=== PATIENT | female | born 1955 | race Caucasian/White ===

== ENCOUNTER 2018-11-19 09:35 | Day surgery (SDC) | payer MEDICARE, OTHER ==
--- NOTE | 2018-11-19 08:28 | HP ---
DATE OF SURGERY: 11/19/2018 HISTORY OF PRESENT ILLNESS: The patient is a 63 year-old with no prior colonoscopy, positive Cologuard reportedly. No visible bloody stools. No pain. No change in bowel movements. Family history negative for colon cancer. She has not had a prior colonoscopy. She is in need of screening colonoscopy. PAST MEDICAL HISTORY: Anxiety. PAST SURGICAL HISTORY: Hysterectomy. MEDICATIONS: Celexa. ALLERGIES: NKDA. FAMILY HISTORY: Heart disease. Negative for colon cancer. SOCIAL HISTORY: One pack per day smoker, denies alcohol abuse. REVIEW OF SYSTEMS: Twelve systems reviewed. No chest pain or palpitations other systems negative or noncontributory as above and per preadmission questionnaire. PHYSICAL EXAMINATION: GENERAL: No acute distress. HEENT: Sclerae nonicteric. NECK: No JVD. CHEST: Equal excursion, nonlabored breathing. CVS: Regular rate and rhythm. ABDOMEN: Soft. No peritoneal signs. EXTREMITIES: No significant edema. NEURO: Alert, oriented, moving extremities symmetrically. No gross motor deficits noted. RECTAL: Deferred timed to endoscopy exam. IMPRESSION: No prior colonoscopy. There is a question whether she had a positive Cologuard or not. Either way she has not had a prior colonoscopy. She is in need of screening colonoscopy for further evaluation. Shown the risk sheet, explained the procedure in detail but not limited to bleeding or infection, risk of bowel injury or perforation possibly requiring open procedure, risk of missed or nondiagnosis or incomplete exam possibly requiring barium enema, other studies or procedures, general risk of anesthesia or sedation, risk of bowel prep, postoperative risk of nausea or cramping, risk of sedation but not limited to, possibility of inability to diagnose the etiology. She understands all the above but not limited to, will proceed with outpatient colonoscopy under MAC anesthesia.
[~2018-11-19 09:35] MED LIST: Lactated Ringers 1,000 ML IV ONE; Lactated Ringers 1,000 ML IV SCH
[2018-11-19] MEDS ORDERED: Ketamine HCl 50 MG/ML IV ONE (09:36)
[2018-11-19] MEDS ORDERED: DIPRIVAN 200 MG/20 ML IV ONE (09:36)
[2018-11-19] MEDS ORDERED: Lactated Ringers 1,000 ML IV ONE (12:11)
[2018-11-19 13:30] VITALS: BP 158/85; PULSE 80; O2SAT 95
--- NOTE | 2018-11-19 14:46 | OP ---
SURGERY DATE/TIME: 11/19/2018 1208 PREOPERATIVE DIAGNOSIS: Need for screening colonoscopy. No prior colonoscopy. Question whether she has heme-positive Cologuard or not. POSTOPERATIVE DIAGNOSES: 1) Small polyp ascending colon. 2) Small raised lesions versus early polyp or hyperplastic lesion sigmoid colon, rectosigmoid colon. 3) Mild diverticulosis. 4) Small internal and external hemorrhoids. 5) Fair bowel prep. 6) Small superficial ulceration cecum. PROCEDURES: 1) Colonoscopy to terminal ileum. 2) Retrograde ileoscopy. 3) Hot snare ascending colon polyp. 4) Hot biopsy small raised lesion sigmoid colon. 5) Hot biopsy small raised lesion rectum. 6) Cold biopsy margin of small superficial ulceration cecum. SURGEON: Dr. Davon Zambrano. ANESTHESIA: MAC. ESTIMATED BLOOD LOSS: Minimal. INDICATIONS: As noted above. Risks and benefits explained in detail but not limited to and consent obtained. DESCRIPTION OF PROCEDURE AND FINDINGS: The patient is taken to the operating room. MAC anesthesia introduced. After official time out and no disagreement with planned procedure, digital rectal exam did not reveal any rectal masses. She did have some small internal and external hemorrhoids. Video colonoscope inserted and passed up through the tortuous sigmoid, descending, transverse and ascending colon. A small polyp in the proximal ascending colon was removed with hot snare polypectomy with brief bursts of cautery. This is a pretty smooth polyp that is about 3 or 4 mm in size. The scope was then passed up through the terminal ileum. Retrograde ileoscopy performed otherwise grossly unremarkable. No signs of any obvious Crohn's disease or inflammatory bowel disease. The scope was carefully withdrawn. There was a small area of tiny 2 mm ulceration of the cecum. A margin of this was biopsied for completeness. This looked more inflammatory than anything. Cold biopsy is taken. There were no obvious masses. The margin had inflammation. The small ulcer in the cecum was biopsied. The scope was slowly and carefully withdrawn. Prep overall was fair. Some liquidy stool was suction irrigated as clear as possible. Scope pulled back. She did have some diverticulosis in the left colon. She did have small raised lesion versus early polyp or hyperplastic lesion in the sigmoid colon as well as another small one down in the rectum removed with hot biopsy forceps. Good hemostasis noted. The scope withdrawn. Patient tolerated the procedure well. There were no immediate complications. Findings discussed with the family out in the waiting area.
== END 2018-11-19 13:30 | disposition home or self-care (01) ==
LOC: SDC 09:35 → EDSTATUS 15:41
PROVIDERS: ATTEND Surgery
DX: Z12.11 Encounter for screening for malignant neoplasm of colon (principal); K63.5 Polyp of colon; K57.30 Diverticulosis of large intestine without perforation or abscess without bleeding; K64.4 Residual hemorrhoidal skin tags; K64.8 Other hemorrhoids; K63.3 Ulcer of intestine
CPT/HCPCS: 88305; J2704

== ENCOUNTER 2020-05-15 14:50 | Emergency (ER) | payer MEDICARE, OTHER ==
--- NOTE | 2020-05-15 15:39 | XRAY ---
Indication: Left head/facial injury following syncopal fall. Multiple contiguous axial images obtained through the head without contrast. Comparison: None Age-appropriate global atrophy and minimal periventricular degenerative micro-ischemia bilaterally. No acute intracranial hemorrhage, abnormal extra-axial fluid collection, or mass effect. Fourth ventricle is midline without hydrocephalus. Sphenoid sinus demonstrates tiny fluid leveling. Partial opacification right mastoid air cells presumed inflammatory. Remaining visualized paranasal sinuses and left mastoid air cells are clear. Impression: 1. Nonacute senile brain. 2. Incidental sphenoid sinus disease and partial opacification of right mastoid air cells presumed inflammatory.
--- NOTE | 2020-05-15 15:41 | XRAY ---
Indication: Left head/facial injury following syncopal fall. Multiple contiguous axial images obtained through the facial bones. Sagittal and coronal reformatted images obtained. Comparison: None Patient is edentulous. Mild left facial soft tissue swelling. No acute fracture, suspicious bony lesions, or radiopaque foreign body. Orbits including roof, jeff, and floors are intact. Minimal mucosal thickening of both maxillary sinuses and tiny sphenoid sinus fluid level layering. Remaining paranasal sinuses and nasal passages are clear. Very minimal nasal septal deviation to the left. Remaining visualized noncontrasted soft tissues unremarkable. CT head and CT cervical spine reported separately. Impression: 1. Left facial soft tissue swelling. Negative for acute fracture. 2. Incidental paranasal sinus disease.
[2020-05-15 15:45] LABS: Absolute Neutrophil Ct (ANC) 8.44 (1.4-6.9); BASOPHIL % 0.4 % (0.0-0.4); Basophil (Absolute #) 0.05 (0-0.4); Eosinophil % 2.8 % (0.00-5.0); Eosinophil (Absolute #) 0.34 (0-0.5); Hematocrit 46.6 % (35-47); Hemoglobin 15.2 gm/dl (12.0-16.0); Lymphocyte (Absolute #) 2.27 (1.0-4.6); Lymphocytes % 18.6 % (24.0-44.0); Mean Cell Volume 94.5 fl (78-100); Mean Corpuscular Hemoglobin 30.8 pg (26-32); Mean Corpuscular Hgb Concent. 32.6 g/dl (32-36); Mean Platelet Volume 10.3 fl (7.5-11.0); Monocyte (Absolute #) 1.09 (0.0-1.3); Monocytes % 8.9 % (0.0-12.0); Neutrophil % 69.3 % (36.0-66.0); Platelet Count 289 K/mm3 (150-450); Red Blood Count 4.93 M/mm3 (4.1-5.4); White Blood Count 12.2 K/mm3 (4.0-10.5)
--- NOTE | 2020-05-15 15:45 | XRAY ---
Indication: Syncopal fall. Weakness. Comparison: June 06, 2019. PA/lateral chest again demonstrates normal heart and lungs with incidental tiny calcified granulomas. Bony thorax intact with minimal degenerative changes. No new/acute findings.
--- NOTE | 2020-05-15 15:45 | XRAY ---
Indication: Left neck pain following syncopal fall. Multiple contiguous axial images obtained through the cervical spine. Sagittal and coronal reformatted images obtained. Comparison: None Axial images negative for acute fracture, suspicious bony lesions, or spinal canal stenosis. Minimal C3-C6 degenerative endplate spurring. Mild left C3-C4 degenerative facet hypertrophy. Sagittal and coronal reformatted images demonstrate normal alignment with minimal C4-C6 disc space narrowing. No acute compression fracture, subluxation, or jumped facet. Visualized noncontrasted soft tissues demonstrates minimal bilateral carotid calcifications. Lung apices are clear. CT head and CT facial bones reported separately. Impression: 1. Negative for acute fracture/subluxation. 2. Incidental C3-C6 degenerative changes.
[2020-05-15 15:51] LABS: INR 1.03 (0.8-3.0); PROTIME 11.6 SECONDS (9.95-12.35)
[2020-05-15 15:57] LABS: ALBUMIN 4.7 g/dL (3.5-5.0); ALKALINE PHOSPHATASE 62 U/L (38-126); ANION GAP 8.7 MEQ/L (5-15); BLOOD UREA NITROGEN 17 mg/dL (7-17); CHLORIDE 103 mmol/L (98-107); Calcium 9.7 mg/dL (8.4-10.2); Carbon Dioxide 31 mmol/L (22-30); Creatinine 1 0.91 mg/dL (0.52-1.04); EST GLOMERULAR FILTRATION RATE > 60.0 ML/MIN; ETHYL ALCOHOL < 10 mg/dL (0-10); Glucose 115 mg/dL (74-106); Potassium 4.3 mmol/L (3.5-5.1); SGOT/AST 32 U/L (14-36); SGPT/ALT 24 U/L (0-35); SODIUM 138 mmol/L (137-145); Total Protein 8.3 g/dL (6.3-8.2)
[2020-05-15 16:06] LABS: Appearance SLIGHTLY CLOUDY (CLEAR); Bilirubin NEGATIVE (NEGATIVE); Blood NEGATIVE Ery/ul (0-5); Epithelial Cells RARE /HPF (FEW); Glucose NEGATIVE (NEGATIVE); Ketones NEGATIVE (NEGATIVE); Leukocyte Esterase MODERATE (NEGATIVE); Nitrite NEGATIVE (NEGATIVE); Protein,Urine Dip NEGATIVE (Negative); RBC 0-2 /HPF (0-2); Specific Gravity 1.005 (1.005-1.025); Urobilinogen NEGATIVE mg/dL (0-1)
--- NOTE | 2020-05-15 16:12 | ERPHSYRPT ---
- History of Present Illness Source: patient, family Exam Limitations: no limitations Patient Subjective Stated Complaint: PT states "I was on the stool and I passed out and hit my face. My lip is split and my cheek is swollen." Triage Nursing Assessment: PT presented alert and oriented X 3, skin pwd. pt ambulates with an upright steady gait, able to speak in clear full sentence. Pt has swelling and brusiing noted to her left cheek. Physician History: 64yo fairly healthy female. Had syncopal experience while on toilet and fell off. Pt experienced flushing, cold sweats prior to LOC. Short time of LOC per pt. Only injury is to left maxilla area. Denies any CAD, DM. Routine yearly checkups negative. NO CP or SOB. Witnessed: unwitnessed Prior Episodes: single episode today Timing/Duration: hour(s) (7) Precipitating Factors: other (see HPI) Context: standing Loss of Consciousness: brief (seconds) Charcter of event(s): collapsed Allergies/Adverse Reactions: bee Allergy (Severe, Uncoded 11/19/18 09:52) Home Medications: Citalopram Hydrobromide [ceLEXa] 40 mg PO DAILY 11/15/18 [History] Hx Tetanus, Diphtheria Vaccination/Date Given: No Hx Influenza Vaccination/Date Given: No Hx Pneumococcal Vaccination/Date Given: No Immunizations Up to Date: Yes Travel Risk - International Travel Have you traveled outside of the country in past 3 weeks: No - Coronavirus Screening Are you exhibiting any of the following symptoms?: No Close contact with a COVID-19 positive Pt in past 14-21 Days: No - Past Medical History Pertinent Past Medical History: Yes Neurological History: Migraines ENT History: No Pertinent History Cardiac History: No Pertinent History Respiratory History: No Pertinent History Endocrine Medical History: No Pertinent History Musculoskeletal History: No Pertinent History GI Medical History: No Pertinent History History: No Pertinent History Psycho-Social History: Anxiety Female Reproductive Disorders: No Pertinent History Other Medical History: pt has hx of cervical cancer - Past Surgical History Past Surgical History: Yes Neuro Surgical History: No Pertinent History Cardiac: No Pertinent History Respiratory: No Pertinent History Gastrointestinal: Cholecystectomy Genitourinary: No Pertinent History Musculoskeletal: No Pertinent History Female Surgical History: Hysterectomy, Dilation & Curettage - Social History Smoking Status: Current every day smoker How long have you smoked: years Exposure to second hand smoke: Yes Drug Use: none Patient Lives Alone: No - Review of Systems Constitutional: No Fever, No Chills Eyes: No Symptoms Ears, Nose, & Throat: No Symptoms, Other (Left maxilla tenderness/ecchymosis/swelling) Respiratory: No Cough, No Dyspnea Cardiac: No Chest Pain, No Edema, No Syncope Abdominal/Gastrointestinal: No Abdominal Pain, No Nausea, No Vomiting, No Diarrhea Genitourinary Symptoms: No Dysuria Musculoskeletal: No Back Pain, No Neck Pain Skin: No Rash Neurological: No Dizziness, No Focal Weakness, No Sensory Changes Psychological: No Symptoms Endocrine: No Symptoms All Other Systems: Reviewed and Negative Physical Exam - Nursing Vital Signs Nursing Vital Signs: Initial Vital Signs Temperature 98.5 F 05/15/20 14:57 Pulse Rate 95 H 05/15/20 14:57 Respiratory Rate 20 05/15/20 14:57 Blood Pressure 156/85 05/15/20 14:57 O2 Sat by Pulse Oximetry 98 05/15/20 14:57 Pain Scale Pain Intensity 4 - [place] Coma Scale Best Eye Response (Keith): (4) open spontaneously Best Verbal Response ([place]): (5) oriented Best Motor Response (Keith): (6) obeys commands [place] Total: 15 - Physical Exam General Appearance: no apparent distress, alert Eye Exam: bilateral eye: PERRL, EOMI Ears, Nose, Throat Exam: normal ENT inspection, pharynx normal, moist mucous membranes, other (Swelling and tenderness to left maxilla area.) Neck Exam: normal inspection, non-tender, supple, full range of motion Respiratory: normal breath sounds, lungs clear, No chest tenderness, No respiratory distress Cardiovascular: regular rate/rhythm, capillary refill <2 sec, No murmur, No pul se deficit Gastrointestinal: soft, No tenderness, No distention, No mass Back Exam: normal inspection, normal range of motion, No CVA tenderness, No v ertebral tenderness Extremity Exam: normal inspection, normal range of motion, pelvis stable, No tenderness Mental Status: alert, oriented x 3, cooperative kennel hand Exam: normal speech, PERRL, No facial droop Coordination/Gait: normal finger to nose Motor/Sensory: no motor deficit, no sensory deficit, no pronator drift Skin Exam: normal color, warm, dry, No rash SpO2: 98 - Course Nursing assessment & vital signs reviewed: Yes EKG Interpreted by Me: RATE (91), Sinus Rhythm, NORMAL AXIS, NORMAL INTERVALS, NORMAL QRS - Radiology Exams Chest X-ray Interpretation: Discussed w/ radiologist, Negative - CT Exams Cervical Spine CT Interpretation: Discussed w/radiologist, No Fracture Ordered Tests: Active Orders 24 hr Category Date Time Status Jigsaw Operator STAT Care 05/15/20 14:58 Active EKG-ER Only STAT Care 05/15/20 14:57 Active IV Insertion STAT Care 05/15/20 14:57 Active CERVICAL SPINE WO CONTRAST [CT] Stat Exams 05/15/20 14:58 Completed CHEST 2 VIEWS (PA AND LAT) Stat Exams 05/15/20 14:58 Completed FACIAL BONES WO CONTRAST [CT] Stat Exams 05/15/20 15:00 Completed HEAD WITHOUT CONTRAST [CT] Stat Exams 05/15/20 14:58 Completed CBC W DIFF Stat Lab 05/15/20 15:42 Completed CMP Stat Lab 05/15/20 15:42 Completed ETHYL ALCOHOL Stat Lab 05/15/20 15:42 Completed PROTIME WITH INR Stat Lab 05/15/20 15:42 Completed TROPONIN Q3H Lab 05/15/20 15:42 Completed UA W/RFX UR CULTURE Stat Lab 05/15/20 15:42 Completed Medication Summary Generic Name Dose Route Start Last Admin Trade Name Freq PRN Reason Stop Dose Admin Cephalexin HCl 500 mg 05/15/20 16:40 Keflex 500 Mg PO 05/15/20 16:41 STAT ONE Lab/Rad Data: Laboratory Result Diagrams 05/15/20 15:42 05/15/20 15:42 Laboratory Results 05/15/20 05/15/20 05/15/20 Range/Units 15:42 15:42 15:42 WBC (4.0-10.5) K/mm3 RBC (4.1-5.4) M/mm3 Hgb (12.0-16.0) gm/dl Hct (35-47) % MCV (78-100) fl MCH (26-32) pg MCHC (32-36) g/dl RDW (11.5-14.0) % Plt Count (150-450) K/mm3 MPV (7.5-11.0) fl Gran % (36.0-66.0) % Eos # (Auto) (0-0.5) Absolute Lymphs (auto) (1.0-4.6) Absolute Monos (auto) (0.0-1.3) Lymphocytes % (24.0-44.0) % Monocytes % (0.0-12.0) % Eosinophils % (0.00-5.0) % Basophils % (0.0-0.4) % Absolute Granulocytes (1.4-6.9) Basophils # (0-0.4) PT 11.6 (9.95-12.35) SECONDS INR 1.03 (0.8-3.0) Sodium 138 (137-145) mmol/L Potassium 4.3 (3.5-5.1) mmol/L Chloride 103 (98-107) mmol/L Carbon Dioxide 31 H (22-30) mmol/L Anion Gap 8.7 (5-15) MEQ/L BUN 17 (7-17) mg/dL Creatinine 0.91 (0.52-1.04) mg/dL Estimated GFR > 60.0 ML/MIN Glucose 115 H (74-106) mg/dL Calcium 9.7 (8.4-10.2) mg/dL Total Bilirubin 0.40 (0.2-1.3) mg/dL AST 32 (14-36) U/L ALT 24 (0-35) U/L Alkaline Phosphatase 62 (38-126) U/L Troponin I < 0.012 (0.000-0.034) ng/mL Serum Total Protein 8.3 H (6.3-8.2) g/dL Albumin 4.7 (3.5-5.0) g/dL Urine Color (YELLOW) Urine Appearance (CLEAR) Urine pH (5-6) Ur Specific [place] (1.005-1.025) Urine Protein (Negative) Urine Ketones (NEGATIVE) Urine Blood (0-5) Elia/ul Urine Nitrite (NEGATIVE) Urine Bilirubin (NEGATIVE) Urine Urobilinogen (0-1) mg/dL Ur Leukocyte Esterase (NEGATIVE) Urine WBC (Auto) (0-5) /HPF Urine RBC (Auto) (0-2) /HPF U Epithel Cells (Auto) (FEW) /HPF Urine Bacteria (Auto) (NEGATIVE) /HPF Urine Culture Reflexed (NO) Urine Glucose (NEGATIVE) mg/dL Ethyl Alcohol < 10 (0-10) mg/dL 05/15/20 05/15/20 Range/Units 15:42 15:42 WBC 12.2 H (4.0-10.5) K/mm3 RBC 4.93 (4.1-5.4) M/mm3 Hgb 15.2 (12.0-16.0) gm/dl Hct 46.6 (35-47) % MCV 94.5 (78-100) fl MCH 30.8 (26-32) pg MCHC 32.6 (32-36) g/dl RDW 14.0 (11.5-14.0) % Plt Count 289 (150-450) K/mm3 MPV 10.3 (7.5-11.0) fl Gran % 69.3 H (36.0-66.0) % Eos # (Auto) 0.34 (0-0.5) Absolute Lymphs (auto) 2.27 (1.0-4.6) Absolute Monos (auto) 1.09 (0.0-1.3) Lymphocytes % 18.6 L (24.0-44.0) % Monocytes % 8.9 (0.0-12.0) % Eosinophils % 2.8 (0.00-5.0) % Basophils % 0.4 (0.0-0.4) % Absolute Granulocytes 8.44 H (1.4-6.9) Basophils # 0.05 (0-0.4) PT (9.95-12.35) SECONDS INR (0.8-3.0) Sodium (137-145) mmol/L Potassium (3.5-5.1) mmol/L Chloride (98-107) mmol/L Carbon Dioxide (22-30) mmol/L Anion Gap (5-15) MEQ/L BUN (7-17) mg/dL Creatinine (0.52-1.04) mg/dL Estimated GFR ML/MIN Glucose (74-106) mg/dL Calcium (8.4-10.2) mg/dL Total Bilirubin (0.2-1.3) mg/dL AST (14-36) U/L ALT (0-35) U/L Alkaline Phosphatase (38-126) U/L Troponin I (0.000-0.034) ng/mL Serum Total Protein (6.3-8.2) g/dL Albumin (3.5-5.0) g/dL Urine Color YELLOW (YELLOW) Urine Appearance SLIGHTLY CLOUDY (CLEAR) Urine pH 7.0 (5-6) Ur Specific [place] 1.005 (1.005-1.025) Urine Protein NEGATIVE (Negative) Urine Ketones NEGATIVE (NEGATIVE) Urine Blood NEGATIVE (0-5) Elia/ul Urine Nitrite NEGATIVE (NEGATIVE) Urine Bilirubin NEGATIVE (NEGATIVE) Urine Urobilinogen NEGATIVE (0-1) mg/dL Ur Leukocyte Esterase MODERATE (NEGATIVE) Urine WBC (Auto) 3-5 (0-5) /HPF Urine RBC (Auto) 0-2 (0-2) /HPF U Epithel Cells (Auto) RARE (FEW) /HPF Urine Bacteria (Auto) NONE (NEGATIVE) /HPF Urine Culture Reflexed NO (NO) Urine Glucose NEGATIVE (NEGATIVE) mg/dL Ethyl Alcohol (0-10) mg/dL - Progress Progress: improved Progress Note: 05/15/20 16:41 Full syncope workup and trauma scans for head injury Labs fairly normal. Probable vasovagal syncope. Urine does show possible early UTI. PT wants tx. DC home. Counseled pt/family regarding: lab results, diagnosis, need for follow-up, rad results - Departure Clinical Impression: UTI (urinary tract infection), Vasovagal syncope Condition: Stable Critical Care Time: No Referrals: CLAUDIA CHANG [NON-STAFF PHY W/O PRIVILEGES] - Instructions: Urinary Tract Infections in Adults, Syncope (Fainting) (DC) Additional Instructions: Hydration Take meds as prescribed Ice to left cheek Motrin for pain Follow up with PCP for recheck Return to ER if worse. Prescriptions: Cephalexin Mh 500 mg [Keflex 500 mg] 500 mg PO TID #21 capsule
[2020-05-15] MEDS ORDERED: KEFLEX 500 MG ONE (16:43)
[2020-05-15] MEDS: KEFLEX 500 MG PO ONE (16:46)
[2020-05-15 16:52] VITALS: BP 139/73; PULSE 74; O2SAT 96
== END 2020-05-15 17:06 | disposition home or self-care (01) ==
LOC: ED 14:50
DX: N39.0 Urinary tract infection, site not specified (principal); R55 Syncope and collapse; Z79.899 Other long term (current) drug therapy
CPT/HCPCS: 36000; 36415; 70450; 70486; 71046; 72125; 80053; 81001; 84484; 85025; 85610; 93005; 93041; 99284; G0480; 80307; A9270-GY

== ENCOUNTER 2020-08-01 18:39 | Emergency (ER) | payer MEDICARE, OTHER ==
[2020-08-01] MEDS ORDERED: TYLENOL EXTRA STRENGTH 500 MG PO STA (19:13)
--- NOTE | 2020-08-01 19:14 | ERPHSYRPT ---
- History of Present Illness Time Seen by Provider: 08/01/20 19:12 Source: patient Exam Limitations: no limitations Patient Subjective Stated Complaint: Pt fell into a large air vent at home and injured her left knee and left spangler Triage Nursing Assessment: Pt was brought to the hospital by her , hypertensive, rates leg pain as 7/10, denies hitting head, denies losing consciousness, denies any other injuries, right knee swelling and warm to the touch, right spangler bruised and warm to the touch Physician History: The patient is a 64-year-old female who presents with a chief complaint of right lower leg pain after mechanical fall. The fall occurred at home. She states she was walking and a floor register was missing causing her to step in the air duct resulted in the injury. She stepped in the air deck with her right foot causing her to bruise her right spangler. She denies any additional injuries to include loss of consciousness or head injury. She does not take anticoagulants or any antiplatelets. She has been able to ambulate on the affected extremity immediately after the fall occurred. She does not take anything for pain prior to arrival. The pain is reportedly mild, constant and nonradiating. Timing/Duration: today Severity: mild Modifying Factors: Improves With: movement Associated Symptoms: No nausea, No vomiting, No abdominal pain, No chest pain, No headaches, No syncope, No weakness Allergies/Adverse Reactions: bee Allergy (Severe, Uncoded 11/19/18 09:52) Home Medications: Citalopram Hydrobromide [ceLEXa] 40 mg PO DAILY 11/15/18 [History] Lisinopril 5 mg [Zestril 5 MG] 5 mg PO DAILY 08/01/20 [History] Hx Tetanus, Diphtheria Vaccination/Date Given: No Hx Influenza Vaccination/Date Given: No Hx Pneumococcal Vaccination/Date Given: No Travel Risk - International Travel Have you traveled outside of the country in past 3 weeks: No - Coronavirus Screening Are you exhibiting any of the following symptoms?: No Close contact with a COVID-19 positive Pt in past 14-21 Days: No - Review of Systems Constitutional: No Symptoms Abdominal/Gastrointestinal: No Nausea, No Vomiting Musculoskeletal: Fall, Injury, Other (Right lower leg pain), No Neck Pain, No Deformity, No Joint Pain All Other Systems: Reviewed and Negative - Past Medical History Pertinent Past Medical History: Yes Neurological History: Migraines ENT History: No Pertinent History Cardiac History: Hypertension Respiratory History: No Pertinent History Endocrine Medical History: No Pertinent History Musculoskeletal History: No Pertinent History GI Medical History: No Pertinent History History: No Pertinent History Psycho-Social History: Anxiety Female Reproductive Disorders: No Pertinent History Other Medical History: pt has hx of cervical cancer - Past Surgical History Past Surgical History: Yes Neuro Surgical History: No Pertinent History Cardiac: No Pertinent History Respiratory: No Pertinent History Gastrointestinal: Cholecystectomy Genitourinary: No Pertinent History Musculoskeletal: No Pertinent History Female Surgical History: Hysterectomy, Dilation & Curettage - Social History Smoking Status: Current every day smoker How long have you smoked: years Exposure to second hand smoke: Yes Drug Use: none Patient Lives Alone: No - Female History Hx Now: No - Nursing Vital Signs Nursing Vital Signs: Initial Vital Signs Temperature 98.8 F 08/01/20 18:55 Pulse Rate 87 08/01/20 18:55 Respiratory Rate 16 08/01/20 18:55 Blood Pressure 165/83 08/01/20 18:55 O2 Sat by Pulse Oximetry 100 08/01/20 18:55 Pain Scale Pain Intensity 5 - Physical Exam General Appearance: no apparent distress, alert Neck Exam: non-tender, supple Respiratory Exam: normal breath sounds, lungs clear, airway intact, No chest tenderness, No respiratory distress, No diminished breath sounds Cardiovascular Exam: regular rate/rhythm, normal heart sounds, capillary refill <2 sec, other (DP 2+ on right and capillary refill brisk in all toes in the right foot), No pulse deficit Extremity Exam: swelling, tenderness, other (There was some mild swelling and tenderness in addition to a noted contusion located to the anterior aspect of the right lower leg just distal to the right knee. Knee flexion and extension was intact and the patient was able to lift the entire right leg off the bed and extend the right knee without), No calf tenderness, No deformities, No limited range of motion, No pedal edema Neurologic Exam: alert, oriented x 3, cooperative, other (Sensation to gross touch was intact in the L4, L5, and S1 nerve distribution of the R foot), No sensory deficit Skin Exam: normal color, warm, dry SpO2 Interpretation: normal SpO2: 100 O2 Delivery: Room Air - Course Nursing assessment & vital signs reviewed: Yes - Radiology Exams Knee X-ray Interpretation: Interpreted by me, Negative, No Fracture Ordered Tests: Active Orders 24 hr Category Date Time Status KNEE (1 OR 2 VIEW) Stat Exams 08/01/20 19:12 Taken Medication Summary Discontinued Medications Generic Name Dose Route Start Last Admin Trade Name Manuel PRN Reason Stop Dose Admin Acetaminophen 1,000 mg 08/01/20 19:13 08/01/20 19:31 Tylenol Extra Strength 500 Mg PO 08/01/20 19:14 1,000 mg STAT STA Administration Acetaminophen Confirm 08/01/20 19:31 Tylenol Extra Strength 500 Mg Administered 08/01/20 19:32 Dose 1,000 mg .ROUTE .[facility] - Progress Progress: improved Progress Note: 08/01/20 19:59 The patient presents with pain and swelling in addition to a contusion noted to the anterior right spangler. Suffering from a periosteal hematoma as a result of her fall. She was able to ambulate on the affected extremity which I witnessed her walking back from the waiting room to her bed. Her x-ray was reviewed and within normal limits and I currently have a low suspicion for tibial plateau fracture and there is CT was not pursued. She was instructed to rest and ice the affected region for the next 24 hours and a prescription for Arion was given to her to take for breakthrough pain if needed otherwise she can take Tylenol but do not mix extra Tylenol with the Arion to avoid liver injury. She agreed with and verbally understood the discharge plan. Counseled pt/family regarding: diagnosis, need for follow-up, rad results - Departure Departure Disposition: Home Clinical Impression: Contusion of right lower leg, initial encounter, Fall, Hypertension Condition: Stable Critical Care Time: No Referrals: SHAMEKA WALLACE MD [Primary Care Provider] - Instructions: Contusion (DC), Preventing Falls Prescriptions: Hydrocodone/APAP 5-325 Tab^^^ [Arion 5-325 Tablet^^^] 1 tab PO Q6HPRN PRN #6 tablet MDD 6 PRN Reason: Pain
[2020-08-01] MEDS ORDERED: TYLENOL EXTRA STRENGTH 500 MG ONE (19:31)
[2020-08-01 19:48] VITALS: BP 140/74; PULSE 75
[2020-08-01 19:59] VITALS: O2SAT 100
--- NOTE | 2020-08-02 08:44 | XRAY ---
Indication: Pain following fall. Comparison: None AP/lateral right knee demonstrates mild anterior tibial soft tissue swelling, tiny patella spurring, and tiny fabella. No other bony, articular, or soft tissue abnormalities.
== END 2020-08-01 19:54 | disposition home or self-care (01) ==
LOC: ED 18:39
DX: S80.11XA Contusion of right lower leg, initial encounter (principal); I10 Essential (primary) hypertension; W17.2XXA Fall into hole, initial encounter; Y92.019 Unspecified place in single-family (private) house as the place of occurrence of the external cause; Z79.899 Other long term (current) drug therapy
CPT/HCPCS: 73560; 99283; A9270-GY

== ENCOUNTER 2020-09-07 09:29 | Day surgery (SDC) | payer MEDICARE, OTHER ==
--- NOTE | 2020-09-04 14:59 | HP ---
DATE OF SURGERY: 09/07/2020 HISTORY OF PRESENT ILLNESS: The patient is a 65 year-old who had a fall in the past. She has some swelling left cheek with persistent smaller vague area. She is concerned that it is a cyst. She had an ultrasound of the area. PAST MEDICAL HISTORY: Hypertension, anxiety, hyperlipidemia. PAST SURGICAL HISTORY: Colonoscopy in the past. Hysterectomy in the past. MEDICATIONS: Calcium, citalopram, cyclobenzaprine, ibuprofen, Lisinopril, multivitamins. She took Celexa in the past according to the patient. ALLERGIES: NKDA. FAMILY HISTORY: Hypertension, coronary artery disease. SOCIAL HISTORY: One pack per day smoker. Denies alcohol abuse. REVIEW OF SYSTEMS: Fourteen systems reviewed. No chest pain or palpitations. Other systems negative or noncontributory as above and per preadmission questionnaire. PHYSICAL EXAMINATION: GENERAL: No acute distress. Left cheek area question subcutaneous cyst. HEENT: Sclerae nonicteric. NECK: No JVD. CHEST: Clear to auscultation. CVS: Regular rate and rhythm. ABDOMEN: Soft, nondistended. EXTREMITIES: No significant edema. NEURO: Alert, moving extremities symmetrically. PSYCH: Appropriate mood and affect. IMPRESSION: Left face cyst or nodule. The patient is concerned about pain, infection and desires excision, will proceed in OR under better lights as well as suture availability. Risks and benefits explained in detail including but not limited to bleeding or infection, the fact she may have scar in the area, risk of other cyst formation adjacent to or elsewhere on her face or body, general risk of anesthesia, deep venous thrombosis, pulmonary embolism, pneumonia including the fact that she will have a scar in the area. She understands all the above but not limited to, as well as the possibility what we excise likely will not recur but she could get similar cyst adjacent to or elsewhere on face or body. She understands. Given the very small nature will have radiology map this ahead of time prior to proceeding to the OR for excision of left face cyst or nodule as an outpatient.
[~2020-09-07 09:29] MED LIST changes: +Sensorcaine 0.25% 10 ML ONE
[2020-09-07] MEDS ORDERED: Lactated Ringers 1,000 ML IV ONE (09:56)
[2020-09-07] MEDS ORDERED: Versed 2 MG/2 ML Injection IV PRN (10:10)
--- NOTE | 2020-09-07 11:12 | XRAY ---
Indication: Localization facial cyst for surgery. Targeted soft tissue ultrasound left face performed inferior to the eye demonstrates a 1.5 mm subcutaneous cyst. No other solid/cystic mass or abnormal fluid collection.
[2020-09-07] MEDS ORDERED: SUBLIMAZE 100 MCG/2 ML ONE (12:15)
[2020-09-07] MEDS ORDERED: DIPRIVAN 200 MG/20 ML IV ONE (12:15)
[2020-09-07] MEDS ORDERED: Versed 2 MG/2 ML Injection ONE (12:16)
[2020-09-07] MEDS ORDERED: KEFZOL 1 GM ONE (12:26)
[2020-09-07] MEDS ORDERED: Ephedrine Sulfate 50 MG/ML ONE (12:28)
[2020-09-07 13:44] VITALS: BP 133/62; PULSE 82; O2SAT 97
--- NOTE | 2020-09-07 13:45 | OP ---
SURGERY DATE/TIME: 09/07/2020 1215 PREOPERATIVE DIAGNOSIS: Persistent vague nodule or cyst causing some aches and pains requiring excision left face. POSTOPERATIVE DIAGNOSIS: Persistent vague nodule or cyst causing some aches and pains requiring excision left face. PROCEDURE: Excisional biopsy left face nodule, thickening of skin versus early cyst path pending approximately 1 cm with margins. SURGEON: Dr. Davon Zambrano. ANESTHESIA: General. ESTIMATED BLOOD LOSS: Minimal. INDICATIONS: As noted above. Risks and benefits explained in detail and not limited to and consent obtained. DESCRIPTION OF PROCEDURE AND FINDINGS: The patient is taken to the operating room. General anesthesia introduced. The patient is prepped and draped in usual sterile fashion. After official time out and no disagreement with planned procedure, the area had been preoperatively marked with ultrasound as they thought they saw a small area. The site was marked with ultrasound as it was such a small area preoperatively. The patient is taken to the operating room. Anesthesia induced. Prepped and draped in sterile fashion. After official time out and no disagreement with planned procedure, marking out in spindle-shaped fashion around where the site had been marked by ultrasound a vague little thickening of the skin here where they felt there was a nodule or cyst. This area was excised down to normal appearing subcutaneous fat beneath and passed off for pathology. There was no evidence of any other larger deeper cyst or nodule at this point. Good hemostasis noted. Pin point cautery at low setting of 12. The wound was then closed with running subcuticular 5-0 Prolene, Steri-Strips and sterile pressure dressing applied. The patient tolerated the procedure well. There were no immediate complications. Findings discussed with the family over the phone as this hospital still not letting family members come in. There were no immediate complications. He was transferred to recovery room in stable condition. I will see her back in the office next week.
== END 2020-09-07 13:48 | disposition home or self-care (01) ==
LOC: SDC 09:29
PROVIDERS: ATTEND Surgery
DX: L72.8 Other follicular cysts of the skin and subcutaneous tissue (principal); I10 Essential (primary) hypertension; E78.5 Hyperlipidemia, unspecified; Z79.899 Other long term (current) drug therapy
CPT/HCPCS: 76536; 76937; 88305; J0690; J2250; J2704; J3010

== ENCOUNTER 2021-08-23 09:52 | Day surgery (SDC) | payer MEDICARE, OTHER ==
--- NOTE | 2021-08-23 07:50 | HP ---
DATE OF SURGERY: 08/23/2021 HISTORY OF PRESENT ILLNESS: The patient is a 66-year-old who about a year ago stepped in a floor duct, has persistent tender nodule lower left leg. She desires excisional biopsy. PAST MEDICAL HISTORY: Hypertension. PAST SURGICAL HISTORY: Hysterectomy. She had cyst removed in the past. Endoscopy in the past. MEDICATIONS: Two blood pressure medications, Celexa, multivitamins, calcium. ALLERGIES: NKDA. FAMILY HISTORY: Negative in regards to this problem. SOCIAL HISTORY: History of smoking. Denies alcohol abuse. REVIEW OF SYSTEMS: Fourteen systems reviewed. No chest pain or palpitations. Other systems negative or noncontributory as above and per preadmission questionnaire. PHYSICAL EXAMINATION: GENERAL: No acute distress. HEENT: Sclerae nonicteric. NECK: No JVD. CHEST: Equal excursion, nonlabored breathing. CVS: Regular rate and rhythm. ABDOMEN: Soft. EXTREMITIES: No significant edema. Right lower extremity some spasm. NEURO: Alert, oriented, moving extremities symmetrically. PSYCH: Appropriate mood and affect. IMPRESSION: Persistent painful nodule right lower leg. I felt the patient would benefit from excisional biopsy. Risks and benefits explained in detail including but not limited to bleeding or infection, risk of wound dehiscence possibly requiring packing or healing by secondary intent. Risk of hematoma or seroma formation, possibility should it be malignancy may require other procedures. Otherwise if this is a lipoma or fibroma what we excise likely will not come back depending on final path but she could get similar nodule adjacent to or elsewhere on her body. She understands as well as general risk of anesthesia, deep venous thrombosis, pulmonary embolism or pneumonia. Will proceed with excisional biopsy of right lower leg subcutaneous nodule or mass as an outpatient.
[~2021-08-23 09:52] MED LIST changes: +CEFAZOLIN 2 GM-D5W BAG** 2 GM/50 ML ML IV SCH; -Lactated Ringers 1,000 ML IV ONE; -Sensorcaine 0.25% 10 ML ONE; +XYLOCAINE 1% HCL 20 ML MDV ONE
[2021-08-23] MEDS ORDERED: Lactated Ringers 1,000 ML IV ONE (10:56)
[2021-08-23] MEDS ORDERED: CEFAZOLIN 2 GM-D5W BAG** 2 GM/50 ML ML IV ONE (10:56)
[2021-08-23] MEDS ORDERED: Versed 2 MG/2 ML Injection IV PRN (11:05)
[2021-08-23] MEDS ORDERED: SUBLIMAZE 100 MCG/2 ML ONE ×2 (11:31→12:30)
[2021-08-23] MEDS ORDERED: DIPRIVAN 200 MG/20 ML IV ONE (11:31)
[2021-08-23] MEDS ORDERED: Xylocaine-Mpf 2% 5 Ml Vial ONE (11:54)
[2021-08-23] MEDS ORDERED: Ephedrine Sulfate 50 MG/ML ONE (11:54)
[2021-08-23] MEDS ORDERED: Sensorcaine 0.25% 10 ML ONE (12:01)
[2021-08-23 16:18] VITALS: BP 104/88; PULSE 76; O2SAT 94
--- NOTE | 2021-08-24 08:14 | OP ---
SURGERY DATE/TIME: 08/23/2021 1134 PREOPERATIVE DIAGNOSIS: Persistent enlarging painful nodule right lower leg, history of trauma in the past. POSTOPERATIVE DIAGNOSIS: Question of lipomatous density with some clear fluid (fat necrosis) path pending. PROCEDURE: Excisional biopsy lipomatous density with fluid right lower leg with history of trauma in the past (approximately 1.7 cm with margins). SURGEON: Dr. Davon Zambrano. ANESTHESIA: General. ESTIMATED BLOOD LOSS: Minimal. INDICATIONS: As noted above. Risks and benefits explained in detail and not limited to and consent obtained. The site was confirmed and marked in the preoperative holding area. DESCRIPTION OF PROCEDURE AND FINDINGS: She was taken to the operating room. General anesthesia induced. Prepped and draped in the usual sterile fashion. After official time out and no disagreement with planned procedure, incision made over the top. Dissection carried down circumferentially around the dense subcutaneous fat. It should be noted there is some clear fluid in this. Whether this is some fat necrosis, saponification or liquefaction from her injury in the past is unclear. The other lipomatous remnants were carefully excised and passed off for pathology. There was no visible foreign body noted. The wound was irrigated out. The remaining tissue was normal subcutaneous tissue and underlying fascia. The specimen is passed off. It measured about 1.7 cm in size. Good hemostasis noted. The wound is closed with interrupted 3-0 Vicryl closing the subcu. Skin closed with 4-0 Vicryl in running subcuticular fashion. Steri-Strips and sterile dressing applied. The patient tolerated the procedure well. 0.25% Marcaine local injected along the area. The patient tolerated the procedure well. There were no immediate complications.
== END 2021-08-23 13:25 | disposition home or self-care (01) ==
LOC: SDC 09:52
PROVIDERS: ATTEND Surgery
DX: D17.23 Benign lipomatous neoplasm of skin and subcutaneous tissue of right leg (principal); L98.8 Other specified disorders of the skin and subcutaneous tissue
CPT/HCPCS: 88305; J0690; J2250; J2704; J3010

== ENCOUNTER 2024-06-22 09:10 | Emergency (ER) | payer MEDICARE, OTHER ==
--- NOTE | 2024-06-22 09:12 | ERPHSYRPT ---
- History of Present Illness Time Seen by Provider: 06/22/24 09:12 Source: patient Exam Limitations: no limitations Physician History: This is a 68-year-old white female patient brought to the emergency department by private vehicle accompanied by family and who is a patient Dr. Car presenting with right flank pain for approximately 1 week. Today the pain was worse. There is no associated chest pain, shortness of breath, fever, cough. There is no vomiting or diarrhea symptoms. Patient has never had any back surgeries in the past. Patient is scheduled to see orthopedic services on 06/27/2024. Patient is a daily smoker of tobacco cigarettes. Patient has a history of hypertension, depression, anxiety, migraine headaches. She describes the pain as constant aching with intermittent sharpness worsened by movement including bending and twisting. Timing/Duration: day(s) (7), worse Method of Injury: unknown Quality: sharp, aching Back Pain Location: paraspinous muscles (Right flank area) Severity of Pain-Max: moderate Severity of Pain-Current: moderate Modifying Factors: Improves With: movement Associated Symptoms: lower back pain (Flank area), No fever, No urinary incontinence, No loss of bowel control, No constipation, No problems urinating Previous symptoms: no prior history, no recent treatment Allergies/Adverse Reactions: bee Allergy (Severe, Uncoded 08/12/20 15:25) Home Medications: Citalopram Hydrobromide [ceLEXa] 40 mg PO DAILY 11/15/18 [History] Ibuprofen 600 mg PO DAILY PRN 08/12/20 [History] Metoprolol Succinate [Toprol Xl] 25 mg PO DAILY 09/04/20 [History] Amlodipine Besylate 5 mg [Norvasc 5 mg] 5 mg PO DAILY 08/23/21 [History] Calcium Carbonate/Vitamin D3 [Calcium 600 with Vit D Chew Tb] 1 each PO DAILY 08/23/21 [History] Multivitamin [Multivitamins] 1 each PO DAILY 08/23/21 [History] Hx Tetanus, Diphtheria Vaccination/Date Given: No Hx Influenza Vaccination/Date Given: No Hx Pneumococcal Vaccination/Date Given: No Travel Risk - International Travel Have you traveled outside of the country in past 3 weeks: No - Emerging Infectious Disease Are you exhibiting symptoms associated with any current EIDs: No - Review of Systems Constitutional: No Symptoms Eyes: No Symptoms Ears, Nose, & Throat: No Symptoms Respiratory: No Symptoms Cardiac: No Symptoms Abdominal/Gastrointestinal: No Symptoms Genitourinary Symptoms: No Symptoms Musculoskeletal: Back Pain (Right flank region) Skin: No Symptoms Neurological: No Symptoms Psychological: No Symptoms Endocrine: No Symptoms Hematologic/Lymphatic: No Symptoms Immunological/Allergic: No Symptoms All Other Systems: Reviewed and Negative - Past Medical History Pertinent Past Medical History: Yes Neurological History: Migraines ENT History: No Pertinent History Cardiac History: Hypertension Respiratory History: No Pertinent History Endocrine Medical History: No Pertinent History Musculoskeletal History: No Pertinent History GI Medical History: No Pertinent History History: No Pertinent History Psycho-Social History: Anxiety Female Reproductive Disorders: No Pertinent History Other Medical History: pt has hx of cervical cancer - Past Surgical History Past Surgical History: Yes Neuro Surgical History: No Pertinent History Cardiac: No Pertinent History Respiratory: No Pertinent History Gastrointestinal: Cholecystectomy Genitourinary: No Pertinent History Musculoskeletal: No Pertinent History Female Surgical History: Hysterectomy, Dilation & Curettage Other Surgical History: cyst removed from face - Social History Smoking Status: Current every day smoker How long have you smoked: years Exposure to second hand smoke: Yes Drug Use: none Patient Lives Alone: No - Nursing Vital Signs Nursing Vital Signs: Initial Vital Signs Temperature 97.9 F 06/22/24 09:40 Pulse Rate 84 06/22/24 09:40 Respiratory Rate 18 06/22/24 09:40 Blood Pressure 152/73 06/22/24 09:40 O2 Sat by Pulse Oximetry 98 06/22/24 09:40 Pain Scale Pain Intensity 4 - Physical Exam General Appearance: no apparent distress, alert, anxiety Eye Exam: PERRL/EOMI, eyes nml inspection Ears, Nose, Throat Exam: normal ENT inspection, moist mucous membranes Neck Exam: normal inspection, non-tender, supple, full range of motion Respiratory Exam: normal breath sounds, lungs clear, airway intact, No chest tenderness, No respiratory distress Cardiovascular Exam: regular rate/rhythm, normal heart sounds, normal peripheral pulses Gastrointestinal Exam: soft, normal bowel sounds, No tenderness Pelvic Exam: not done Rectal Exam: not done Back Exam: normal inspection, normal range of motion, CVA tenderness (Right side to palpation/percussion), vertebral tenderness (No vertebral tenderness to palpation) Extremity Exam: normal inspection, normal range of motion, pelvis stable Neurologic Exam: alert, oriented x 3, cooperative, 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 nml as tested, nml cerebellar function, nml station & gait, sensation nml Skin Exam: normal color, warm, dry Lymphatic Exam: No adenopathy SpO2 Interpretation: normal O2 Delivery: Room Air - Course Nursing assessment & vital signs reviewed: Yes Ordered Tests: Active Orders 24 hr Category Date Time Status ABDOMEN AND PELVIS W/0 CONTRAS [CT] Stat Exams 06/22/24 09:57 Completed CULTURE,URINE Stat Lab 06/22/24 10:02 Received UA W/RFX UR CULTURE Stat Lab 06/22/24 10:02 Completed Medication Summary Discontinued Medications Generic Name Dose Route Start Last Admin Trade Name Freq PRN Reason Stop Dose Admin Ceftriaxone Sodium 1,000 mg 06/22/24 11:40 Ceftriaxone Sodium 1000 Mg Inj Vial IM 06/22/24 11:41 STAT ONE Lab/Rad Data: Laboratory Results 06/22/24 Range/Units 10:02 Urine Color Yellow (Yellow) Urine Appearance Cloudy A (Clear) Urine pH 6.0 (4.6-8.0) Ur Specific [place] 1.015 (1.005-1.030) Urine Protein Trace A (Negative) Urine Glucose (UA) Negative (Negative) mg/dL Urine Ketones Negative (Negative) Urine Blood NHT (Negative) Urine Nitrite Negative (Negative) Urine Bilirubin Negative (Negative) Urine Urobilinogen 0.2 (0.2) mg/dL Ur Leukocyte Esterase Large A (Negative) U Hyaline Cast (Auto) NONE SEEN (0-2) /LPF Urine Microscopic RBC 0-2 (0-5) /HPF Urine Microscopic WBC 51-100 A (0-5) /HPF Ur Epithelial Cells Many A (None Seen) /HPF Urine Bacteria Few A (None Seen) /HPF Urine Culture Reflexed YES (NO) - Progress Progress: improved, pain not gone completely Progress Note: 06/22/24 10:02 My medical decision making and the assignment of low to moderate complexity of this patient's medical issue today is based on review of the patient's past medical history, review of the patient's medication list, review of the patient drug allergy list, history present illness and physical findings on examination. Workup in this patient includes urinalysis and CT scan of the abdomen pelvis. Differential diagnosis includes but is not limited to back pain, urinary tract infection, ureterolithiasis, pyelonephritis, abdominal aortic abnormality, lumbar spine abnormality 06/22/24 11:43 Interpreted the patient's laboratory data results. Based on laboratory data results, the patient has a significant urinary tract infection that could account for her symptoms. The CT scan of the abdomen pelvis without contrast was interpreted by the radiologist and I reviewed the impression. The impression states right renal cyst lower pole. Advised contrast CT scan of the abdomen pelvis. Right adrenal nodule. Advise CT adrenal protocol. Mesenteric adenitis. Uncomplicated/uncomplicated colonic diverticula 06/22/24 11:[address] findings to pt. Counseled pt/family regarding: lab results, diagnosis, need for follow-up, rad results Medical Desision Making - Independent Historian Additional History obtained from: Family - Diagnostic Testing Diagnostic test were ordered, analyzed, and reviewed by me: Yes Radiological Interpretation: Reviewed by me, Teleradiologist Report - Risk of complications The pt has a mod risk of morbidity or mortality based on: Need for prescription drug management - Departure Departure Disposition: Home Clinical Impression: Urinary tract infection, Renal cyst, right, Adrenal nodule, Mesenteric adenitis Condition: Stable Critical Care Time: No Referrals: BOYD CAR DO [Primary Care Provider] - Follow up/PCP as directed Additional Instructions: Drink plenty of fluids. Take antibiotics and other medications as prescribed. Call your provider on Monday06/24/24 to arrange follow up appointment to be seen in next 3 to 5 days to discuss and management of ct scan findings. Prescriptions: Ciprofloxacin [Cipro 500 MG] 500 mg PO BID #14 tablet
[2024-06-22 09:56] VITALS: TEMP 97.9
[2024-06-22 10:10] LABS: Appearance Cloudy (Clear); Bacteria Few /HPF (None Seen); Bilirubin Negative (Negative); Blood NHT (Negative); Epithelial Cells Many /HPF (None Seen); Glucose, Urine Negative (Negative); Hyaline Casts NONE SEEN /LPF (0-2); Ketones Negative (Negative); Leukocyte Esterase Large (Negative); Nitrite Negative (Negative); Protein,Urine Dip Trace (Negative); RBC 0-2 /HPF (0-5); Specific Gravity 1.015 (1.005-1.030); Urobilinogen 0.2 mg/dL (0.2); WBC 51-100 /HPF (0-5)
--- NOTE | 2024-06-22 11:24 | XRAY ---
CLINICAL HISTORY: Right flank pain COMPARISON: No prior studies available for comparison. TECHNIQUE: Non-contrast CT of the abdomen and pelvis was performed, with the following protocol: axial images, and reconstructed coronal and sagittal images. No intravenous contrast was administered. One of the following dose reduction techniques was utilized for this exam: Automated exposure control, adjustment of the mA and/or kV according to patient size, and use of iterative reconstruction. FINDINGS: Abdomen: Liver: Normal in size, shape, and density. No focal lesions, cysts, or masses were identified. Gallbladder and Biliary System: Status post cholecystectomy. CBD appears prominent likely due to post cholecystectomy. Pancreas: Pancreatic head, body, and tail are visualized and appear normal in size and density. No pancreatic masses were noted. Few pancreatic body calcifications seen. Spleen: Normal in size, shape, and density. No splenic lesions or masses were identified. Kidneys and Adrenal Glands: 2.8 x 1.7cm cystic area seen in the lower pole of right kidney extending into medulla, likely cortical cyst however contrast examination advised. No renal calculi or hydronephrosis. Right adrenal nodule measuring 1.3 x 1.0cm seen with HU 10.2. Appendix: The appendix is normal in size without jaelyn appendiceal fat stranding, and without an appendicolith. No evidence of appendiceal abscess or perforation. Pelvis: Urinary Bladder: Normal in contour and wall thickness. No intraluminal lesions. Uterus and ovaries are not visualized likely status post surgery, clinical correlation is advised. Peritoneal and Retroperitoneal Structures: Mild mesenteric fat stranding with prominent mesenteric lymph nodes suggestive of mesenteric adenitis / mesenteric paniculitis. Bowel: The visualized bowel loops are normal in caliber and appearance. No evidence of bowel obstruction or wall thickening. Few noncomplicated colonic diverticula seen. Bones and Soft Tissues: Mild degenerative changes seen. Visualized lung turner show multiple calcified granulomas likely benign. Vascular calcifications seen. Hiatal hernia seen. IMPRESSION: 1. 2.8 x 1.7cm cystic area seen in the lower pole of right kidney extending into the medulla, likely cortical cyst however contrast examination advised for further evaluation. 2. Right adrenal nodule measuring 1.3 x 1.0cm seen with HU 10.2 likely adenoma, however CT adrenal protocol is advised. 3. Mild mesenteric fat stranding with prominent mesenteric lymph nodes suggestive of mesenteric adenitis. 4. Few noncomplicated colonic diverticula. Electronically Signed by: Jacky Panda MD. (06/22/2024 11:19:27 EST)
[2024-06-22] MEDS ORDERED: Rocephin 1000 MG INJ ONE (11:43)
[2024-06-22] MEDS ORDERED: ROCEPHIN 1 GM / 100 ML NaCl 1 GM/100 ML IVPB IV ONE (11:50)
[2024-06-22] MEDS: ROCEPHIN 1 GM / 100 ML NaCl 1 GM/100 ML IVPB IV SCH (11:51)
[2024-06-22] MEDS ORDERED: NORCO 5/325 MG ONE (11:52)
[2024-06-22] MEDS: NORCO 5/325 MG PO ONE (11:53)
[2024-06-22] MEDS: Rocephin 1000 MG INJ IM ONE (11:55)
[2024-06-22 12:12] VITALS: BP 139/70; PULSE 72; RESP 19; O2SAT 97
== END 2024-06-22 12:19 | disposition home or self-care (01) ==
LOC: ED 09:10
DX: N39.0 Urinary tract infection, site not specified (principal); Q61.01 Congenital single renal cyst; E27.8 Other specified disorders of adrenal gland; I88.0 Nonspecific mesenteric lymphadenitis; R10.9 Unspecified abdominal pain; I10 Essential (primary) hypertension; Z79.899 Other long term (current) drug therapy; Z72.0 Tobacco use
CPT/HCPCS: 74176; 81001; 87086; 96374; 99284; J0696; A9270-GY

== ENCOUNTER 2024-08-14 11:57 | Observation (INO) | payer MEDICARE, OTHER ==
--- NOTE | 2024-08-14 12:44 | ERPHSYRPT ---
- History of Present Illness Time Seen by Provider: 08/14/24 12:41 Source: patient Exam Limitations: no limitations Patient Subjective Stated Complaint: C/O fall this am around 10:45am resulting in a head injury. Patient reports diarrhea for weeks. States she felt "light h eaded" this am, stood up from her recliner to go lay down, passed out and fell to the floor; she hit her head. Only c/o pain to back of head, no other c/o pain or injuries. Triage Nursing Assessment: Patient ambulated back to ER without difficulties. She is alert and oriented. No SOB. LÓPEZ WNL. Small laceration noted to back of head; no active bleeding at this time but noted dried blood in hair. Skin tone normal. Physician History: Patient is a 69-year-old female presents to our ED for evaluation of syncope. Patient states that she had been experiencing diarrhea for the past several weeks. Patient had not followed up with anyone. Patient sat down at the table this morning at around 10:45 AM. Patient began to feel lightheaded as she was sitting. Patient stood up to lay down in her bedroom. As she stood up patient passed out fell backwards and hit her head on the hardwood floor. Injury occurred just prior to arrival. No neck pain. Cervical spine cleared clinically. However patient has a contusion with a superficial abrasion to the posterior scalp just right of midline. Laceration repair not indicated. Patient otherwise feels well at this time. No chest pain or shortness of breath. No nausea vomiting or diaphoresis. Son at bedside. They voiced no other complaints or concerns at this time. Portions of this note were created with voice recognition technology. There may be grammatical, spelling, punctuation or sound alike errors Timing/Duration: today Severity: moderate Modifying Factors: Improves With: nothing Associated Symptoms: denies symptoms Allergies/Adverse Reactions: bee Allergy (Severe, Uncoded 08/14/24 12:32) Home Medications: Citalopram Hydrobromide [ceLEXa] 40 mg PO DAILY 11/15/18 [History] Ibuprofen 600 mg PO DAILY PRN 08/12/20 [History] Metoprolol Succinate [Toprol Xl] 25 mg PO DAILY 09/04/20 [History] Amlodipine Besylate 5 mg [Norvasc 5 mg] 5 mg PO DAILY 08/23/21 [History] Calcium Carbonate/Vitamin D3 [Calcium 600 with Vit D Chew Tb] 1 each PO DAILY 08/23/21 [History] Multivitamin [Multivitamins] 1 each PO DAILY 08/23/21 [History] Hx Tetanus, Diphtheria Vaccination/Date Given: No Hx Influenza Vaccination/Date Given: No Hx Pneumococcal Vaccination/Date Given: No Immunizations Up to Date: No Travel Risk - International Travel Have you traveled outside of the country in past 3 weeks: No - Emerging Infectious Disease Are you exhibiting symptoms associated with any current EIDs: Yes Symptoms: Diarrhea - Review of Systems Constitutional: No Symptoms, No Fever, No Chills Eyes: No Symptoms Ears, Nose, & Throat: No Symptoms Respiratory: No Symptoms, No Cough, No Dyspnea Cardiac: No Symptoms, No Chest Pain, No Edema, No Syncope Abdominal/Gastrointestinal: No Symptoms, No Abdominal Pain, No Nausea, No Vomiting, No Diarrhea Genitourinary Symptoms: No Symptoms, No Dysuria Musculoskeletal: No Symptoms, No Back Pain, No Neck Pain Skin: No Symptoms, No Rash Neurological: No Symptoms, No Dizziness, No Focal Weakness, No Sensory Changes Psychological: No Symptoms Endocrine: No Symptoms Hematologic/Lymphatic: No Symptoms Immunological/Allergic: No Symptoms All Other Systems: Reviewed and Negative - Past Medical History Pertinent Past Medical History: Yes Neurological History: Migraines ENT History: No Pertinent History Cardiac History: Hypertension Respiratory History: No Pertinent History Endocrine Medical History: No Pertinent History Musculoskeletal History: No Pertinent History GI Medical History: No Pertinent History History: No Pertinent History Psycho-Social History: Anxiety Female Reproductive Disorders: No Pertinent History Other Medical History: pt has hx of cervical cancer - Past Surgical History Past Surgical History: Yes Neuro Surgical History: No Pertinent History Cardiac: No Pertinent History Respiratory: No Pertinent History Gastrointestinal: Cholecystectomy Genitourinary: No Pertinent History Musculoskeletal: No Pertinent History Female Surgical History: Hysterectomy, Dilation & Curettage Other Surgical History: cyst removed from face - Social History Smoking Status: Current every day smoker How long have you smoked: years Exposure to second hand smoke: Yes Drug Use: none Patient Lives Alone: No - Social Determinants of Health Will the patient participate in the screening: Yes Do you worry about a steady place to live?: No Do you have any problems with any of the following?: No known problems In the past 12 months,have you had to go without utilities?: No Transportation Issues: No Has anyone in your support network made you feel unsafe?: No Have you or anyone in your house had to go without enough: No - Nursing Vital Signs Nursing Vital Signs: Initial Vital Signs Temperature 98 F 08/14/24 12:20 Pulse Rate 73 08/14/24 12:20 Respiratory Rate 17 08/14/24 12:20 Blood Pressure 144/73 08/14/24 12:20 O2 Sat by Pulse Oximetry 96 08/14/24 12:20 Pain Scale Pain Intensity 4 - Physical Exam General Appearance: no apparent distress, alert Eye Exam: PERRL/EOMI, eyes nml inspection Ears, Nose, Throat Exam: normal ENT inspection, TMs normal, moist mucous membranes Neck Exam: normal inspection, non-tender, supple, full range of motion Respiratory Exam: normal breath sounds, lungs clear, airway intact, No respiratory distress Cardiovascular Exam: regular rate/rhythm, normal heart sounds, normal peripheral pulses Gastrointestinal/Abdomen Exam: soft, normal bowel sounds, No tenderness, No mass Back Exam: normal inspection, normal range of motion, No CVA tenderness, No vertebral tenderness Extremity Exam: normal inspection, normal range of motion, pelvis stable Neurologic Exam: alert, oriented x 3, cooperative, normal mood/affect, sensation nml, No motor deficits Skin Exam: normal color, warm, dry, No rash Lymphatic Exam: No adenopathy SpO2 Interpretation: normal SpO2: 96 O2 Delivery: Room Air - Course Nursing assessment & vital signs reviewed: Yes EKG Interpreted by Me: RATE ([id number]), Sinus Rhythm, NORMAL AXIS, NORMAL INTERVALS, NORMAL QRS - CT Exams Head CT Interpretation: Tele-radiologist Report (Nonacute senile brain. No paranasal sinus disease) Ordered Tests: Active Orders 24 hr Category Date Time Status Cage Shift Manager STAT Care 08/14/24 12:38 Active EKG-ER Only STAT Care 08/14/24 12:38 Active IV Insertion STAT Care 08/14/24 12:38 Active Pulse Oximetry (ED) STAT Care 08/14/24 12:38 Active HEAD WITHOUT CONTRAST [CT] Stat Exams 08/14/24 12:37 Completed CBC W DIFF Stat Lab 08/14/24 12:56 Completed CMP Stat Lab 08/14/24 12:56 Completed CULTURE,URINE Stat Lab 08/14/24 14:11 Received TROPONIN Q4H Lab 08/14/24 12:56 Completed TROPONIN Q4H Lab 08/14/24 14:45 Completed TROPONIN Q4H Lab 08/14/24 20:45 Ordered UA W/RFX UR CULTURE Stat Lab 08/14/24 14:11 Completed Transfer Order Routine Transfer 08/14/24 Ordered Medication Summary Generic Name Dose Route Start Last Admin Trade Name Freq PRN Reason Stop Dose Admin Sodium Chloride 1,000 mls @ 250 mls/hr 08/14/24 12:45 08/14/24 13:04 Sodium Chloride 0.9% 1000 Ml IV 09/13/24 12:44 250 mls/hr .Q4H ANA PAULA Administration Discontinued Medications Generic Name Dose Route Start Last Admin Trade Name Freq PRN Reason Stop Dose Admin Ceftriaxone Sodium 1 gm in 100 mls @ 200 mls/hr 08/14/24 15:43 08/14/24 16:00 Rocephin 1 Gm / 100 Ml Nacl IV 08/14/24 16:12 200 mls/hr STAT ONE 200 mls/hr Administration Ceftriaxone Sodium Confirm 08/14/24 15:51 Rocephin 1 Gm / 100 Ml Nacl Administered 08/14/24 15:52 Dose 1 gm in 100 mls @ ud IV .STK-MED ONE Lab/Rad Data: Laboratory Result Diagrams 08/14/24 12:56 08/14/24 12:56 Laboratory Results 08/14/24 08/14/24 08/14/24 Range/Units 14:45 14:11 12:56 WBC (3.98-10.04) x10^3/uL RBC (3.93-5.22) x10^6/uL Hgb (11.2-15.7) g/dL Hct (34.1-44.9) % MCV (79.4-94.8) fL MCH (25.6-32.2) pg MCHC (32.2-35.5) g/dL RDW (11.7-14.4) % Plt Count (182-369) x10^3/uL MPV (9.4-12.3) fL Gran % (34.0-71.1) % Immature Gran % (Auto) (0.001-0.429) % Nucleat RBC Rel Count (0.00-0.2) % Eos # (Auto) (0.04-0.36) x10^3/uL Immature Gran # (Auto) (0.001-0.031) x10^3u/L Absolute Lymphs (auto) (1.18-3.74) x10^3/uL Absolute Monos (auto) (0.24-0.86) x10^3/uL Absolute Nucleated RBC (0.00-0.012) x10^3u/L Lymphocytes % (19.3-51.7) % Monocytes % (4.7-12.5) % Eosinophils % (0.7-5.8) % Basophils % (0.1-1.2) % Absolute Granulocytes (1.56-6.13) x10^3/uL Basophils # (0.01-0.08) x10^3/uL Sodium (135-145) mmol/L Potassium (3.5-5.1) mmol/L Chloride (98-107) mmol/L Carbon Dioxide (22-30) mmol/L Anion Gap (5-15) MEQ/L BUN (7-17) mg/dL Creatinine (0.52-1.04) mg/dL Estimated GFR ML/MIN Glucose (74-106) mg/dL Calcium (8.4-10.2) mg/dL Total Bilirubin (0.2-1.3) mg/dL AST (14-36) U/L ALT (0-35) U/L Alkaline Phosphatase (38-126) U/L Troponin I < 0.012 < 0.012 (0.000-0.033) ng/mL Serum Total Protein (6.3-8.2) g/dL Albumin (3.5-5.0) g/dL Urine Color Yellow (Yellow) Urine Appearance Cloudy A (Clear) Urine pH 6.0 (4.6-8.0) Ur Specific Ada 1.015 (1.005-1.030) Urine Protein Negative (Negative) Urine Glucose (UA) Negative (Negative) mg/dL Urine Ketones 15 A (Negative) Urine Blood Small A (Negative) Urine Nitrite Negative (Negative) Urine Bilirubin Negative (Negative) Urine Urobilinogen 0.2 (0.2) mg/dL Ur Leukocyte Esterase Large A (Negative) U Hyaline Cast (Auto) 3-5 A (0-2) /LPF Urine Microscopic RBC 11-20 A (0-5) /HPF Urine Microscopic WBC 21-50 A (0-5) /HPF Ur Epithelial Cells Few (None Seen) /HPF Urine Bacteria Many A (None Seen) /HPF Urine Culture Reflexed YES (NO) 08/14/24 08/14/24 Range/Units 12:56 12:56 WBC 7.1 (3.98-10.04) x10^3/uL RBC 4.18 (3.93-5.22) x10^6/uL Hgb 12.8 (11.2-15.7) g/dL Hct 38.5 (34.1-44.9) % MCV 92.1 (79.4-94.8) fL MCH 30.6 (25.6-32.2) pg MCHC 33.2 (32.2-35.5) g/dL RDW 13.6 (11.7-14.4) % Plt Count 231 (182-369) x10^3/uL MPV 10.3 (9.4-12.3) fL Gran % 68.9 (34.0-71.1) % Immature Gran % (Auto) 0.4 (0.001-0.429) % Nucleat RBC Rel Count 0.0 (0.00-0.2) % Eos # (Auto) 0.07 (0.04-0.36) x10^3/uL Immature Gran # (Auto) 0.03 (0.001-0.031) x10^3u/L Absolute Lymphs (auto) 0.88 L (1.18-3.74) x10^3/uL Absolute Monos (auto) 1.15 H (0.24-0.86) x10^3/uL Absolute Nucleated RBC 0.00 (0.00-0.012) x10^3u/L Lymphocytes % 12.4 L (19.3-51.7) % Monocytes % 16.3 H (4.7-12.5) % Eosinophils % 1.0 (0.7-5.8) % Basophils % 1.0 (0.1-1.2) % Absolute Granulocytes 4.87 (1.56-6.13) x10^3/uL Basophils # 0.07 (0.01-0.08) x10^3/uL Sodium 137 (135-145) mmol/L Potassium 4.1 (3.5-5.1) mmol/L Chloride 102 (98-107) mmol/L Carbon Dioxide 28 (22-30) mmol/L Anion Gap 10.6 (5-15) MEQ/L BUN 12 (7-17) mg/dL Creatinine 0.97 (0.52-1.04) mg/dL Estimated GFR 62.5 ML/MIN Glucose 94 (74-106) mg/dL Calcium 9.1 (8.4-10.2) mg/dL Total Bilirubin 0.30 (0.2-1.3) mg/dL AST 45 H (14-36) U/L ALT 31 (0-35) U/L Alkaline Phosphatase 53 (38-126) U/L Troponin I (0.000-0.033) ng/mL Serum Total Protein 7.3 (6.3-8.2) g/dL Albumin 4.4 (3.5-5.0) g/dL Urine Color (Yellow) Urine Appearance (Clear) Urine pH (4.6-8.0) Ur Specific Ada (1.005-1.030) Urine Protein (Negative) Urine Glucose (UA) (Negative) mg/dL Urine Ketones (Negative) Urine Blood (Negative) Urine Nitrite (Negative) Urine Bilirubin (Negative) Urine Urobilinogen (0.2) mg/dL Ur Leukocyte Esterase (Negative) U Hyaline Cast (Auto) (0-2) /LPF Urine Microscopic RBC (0-5) /HPF Urine Microscopic WBC (0-5) /HPF Ur Epithelial Cells (None Seen) /HPF Urine Bacteria (None Seen) /HPF Urine Culture Reflexed (NO) - Progress Progress: improved Progress Note: 69-year-old female presents to our ED post syncope. Patient reports history of diarrhea. Physical exam nonremarkable. Laboratory workup essentially nonremarkable as well. UA significant for urinary tract infection. Rocephin infused. IV fluid administered for suspected dehydration. Patient has a posterior scalp contusion with an abrasion. No laceration. No indication for suture or staple repair. Patient cervical spine cleared clinically. At this point it is unclear why patient experienced a syncopal episode. No evidence of dehydration on her labs. Case discussed with hospitalist who will accept patient to observation for syncopal workup. Patient accepted at 4:06 PM. Plan of care discussed with patient. Patient agrees to admission at [facility] for further evaluation and treatment. Portions of this note were created with voice recognition technology. There may be grammatical, spelling, punctuation or sound alike errors Complexity of problem addressed is moderate acute complicated no critical care time. Complex of data reviewed and analyzed is extensive. Test ordered chest reviewed results analyzed and correlated clinically with history and physical exam. Risk of complication and or risk of morbidity/mortality of patient kimmie shaffer is high. Patient requires hospitalization for further evaluation and treatment. Vital stable. Time spent admit patient approximately 20 minutes. Plan of care established for shared decision making. No social determinants of health present to impede follow-up. Portions of this note were created with voice recognition technology. There may be grammatical, spelling, punctuation or sound alike errors 08/14/24 16:21 Counseled pt/family regarding: lab results, diagnosis, rad results - Departure Departure Disposition: Observation Clinical Impression: Paranasal sinus disease, Syncope and collapse, Scalp contusion, Scalp abrasion, UTI (urinary tract infection) Condition: Stable Critical Care Time: No Referrals: BOYD CAR DO [Primary Care Provider] - Follow up/PCP as directed
[2024-08-14] MEDS ORDERED: Sodium Chloride 0.9% 1000 ML 1,000 ML ONE (13:03)
[2024-08-14 13:04] LABS: Absolute Neutrophil Ct (ANC) 4.87 x10^3/uL (1.56-6.13); Basophil (Absolute #) 0.07 x10^3/uL (0.01-0.08); Eosinophil (Absolute #) 0.07 x10^3/uL (0.04-0.36); Hematocrit 38.5 % (34.1-44.9); Hemoglobin 12.8 g/dL (11.2-15.7); IMMATURE GRAN # 0.03 x10^3u/L (0.001-0.031); IMMATURE GRAN % 0.4 % (0.001-0.429); Lymphocyte (Absolute #) 0.88 x10^3/uL (1.18-3.74); Lymphocytes % 12.4 % (19.3-51.7); Mean Cell Volume 92.1 fL (79.4-94.8); Mean Corpuscular Hemoglobin 30.6 pg (25.6-32.2); Mean Corpuscular Hgb Concent. 33.2 g/dL (32.2-35.5); Mean Platelet Volume 10.3 fL (9.4-12.3); Monocyte (Absolute #) 1.15 x10^3/uL (0.24-0.86); Monocytes % 16.3 % (4.7-12.5); Neutrophil % 68.9 % (34.0-71.1); Platelet Count 231 x10^3/uL (182-369); Red Blood Count 4.18 x10^6/uL (3.93-5.22); Red Cell Distribution Width 13.6 % (11.7-14.4); White Blood Count 7.1 x10^3/uL (3.98-10.04)
[2024-08-14] MEDS: Sodium Chloride 0.9% 1000 ML 1,000 ML IV SCH (13:04)
[2024-08-14 13:25] LABS: ALBUMIN 4.4 g/dL (3.5-5.0); ANION GAP 10.6 MEQ/L (5-15); BILIRUBIN,TOTAL 0.3 mg/dL (0.2-1.3); Calcium 9.1 mg/dL (8.4-10.2); Creatinine 1 0.97 mg/dL (0.52-1.04); EST GLOMERULAR FILTRATION RATE 62.5 ML/MIN; Potassium 4.1 mmol/L (3.5-5.1); Total Protein 7.3 g/dL (6.3-8.2)
--- NOTE | 2024-08-14 13:45 | XRAY ---
Indication: Status post fall. Laceration. Multiple contiguous axial images obtained through the head without contrast. Comparison: May 15, 2020 Again age-appropriate global atrophy with progressive worsening mild periventricular degenerative micro-ischemia bilaterally. No acute intracranial hemorrhage, abnormal extra-axial fluid collection, or mass effect. Fourth ventricle is midline without hydrocephalus. Bony calvarium intact. New minimal/mild mucosal thickening both maxillary, ethmoid, and sphenoid sinuses. Mastoid air cells are clear. Impression: Nonacute senile brain. New paranasal sinus disease.
[2024-08-14 14:30] LABS: Appearance Cloudy (Clear); Bacteria Many /HPF (None Seen); Bilirubin Negative (Negative); Blood Small (Negative); Epithelial Cells Few /HPF (None Seen); Glucose, Urine Negative (Negative); Ketones 15 (Negative); Leukocyte Esterase Large (Negative); Nitrite Negative (Negative); Protein,Urine Dip Negative (Negative); Specific Gravity 1.015 (1.005-1.030); Urobilinogen 0.2 mg/dL (0.2); WBC 21-50 /HPF (0-5)
[2024-08-14] MEDS ORDERED: ROCEPHIN 1 GM / 100 ML NaCl 1 GM/100 ML IVPB IV ONE (15:51)
[2024-08-14] MEDS: ROCEPHIN 1 GM / 100 ML NaCl 1 GM/100 ML IVPB IV ONE (16:00)
[2024-08-14] MEDS ORDERED: TORAdol 30 mg Injection ONE (16:40)
[2024-08-14] MEDS: TORAdol 30 mg Injection IV ONE (16:40)
[2024-08-14] MEDS: Nicoderm CQ 21 MG TOP ONE (16:49)
[2024-08-14] MEDS ORDERED: TYLENOL 325 MG ONE (16:57)
[2024-08-14] MEDS: TYLENOL 325 MG PO STA (16:57)
--- NOTE | 2024-08-14 18:10 | PCM.HP ---
<PAXTON CAVANAUGH - Last Filed: 08/14/24 17:54> History of Present Illness - Chief Complaint Chief Complaint: Syncope and collapse/UTI Date: 08/14/24 History of Present Illness: is a 69 year old female HTN, and cervical cancer who presented to ED for evaluation on 08/14/24 following a syncopal episode at home. Patient reports that she contracted the stomach flu from her grandson around July the and for the past several weeks she has been experiencing bouts of diarrhea with resultant weakness but has not been seen OP. She reports that she was getting a cup of coffee this morning and began feeling lightheaded. She sat down at the table and when she went to stand up again she passed out hitting her head. Son states that the entire episode lasted less than 2 mins. No shaking or jerking. Patient was slightly confused when she came to but recovered quickly. Patient has a contusion with a superficial abrasion to the posterior scalp just right of midline. Laceration repair not indicated. She states she is still having shelly rrhea but it has slowed down to 2-3 watery stools daily. Her appetite and energy have been poor. No hematochezia. Of note she was treated for a UTI in May and seen at [facility]. Ucult shows mixed clifford. She was prescribed cipro and took the full course. Denies fever,cough, sob, cp, abdominal pain, dysuria, hematuria, HOANG, N/V. Upon arrival to ED, vitals stable. EKG per ED report -RATE (67), Sinus Rhythm, NORMAL AXIS, NORMAL INTERVALS, NORMAL QRS. T head with no acute findings. Lab findings remarkable with UA suspicious for infection. CBC and chemistries unremarkable. Patient given fluid bolus and ceftriaxone in ED. - Review of Systems Constitutional: Lethargy, Weakness Eyes: No Symptoms Ears, Nose, & Throat: No Symptoms Respiratory: No Symptoms Cardiac: Edema (BLE trace) Abdominal/Gastrointestinal: Diarrhea, Other (Right side pain) Genitourinary Symptoms: No Symptoms Musculoskeletal: No Symptoms Skin: Other (contusion with a superficial abrasion to the posterior scalp just right of midline) Neurological: No Symptoms Psychological: No Symptoms Endocrine: No Symptoms Hematologic/Lymphatic: No Symptoms Immunological/Allergic: No Symptoms Medications & Allergies Home Medications: Home Medication List Citalopram Hydrobromide [ceLEXa] 40 mg PO DAILY 11/15/18 [History Confirmed 08/14/24] Metoprolol Succinate [Toprol Xl] 25 mg PO DAILY 09/04/20 [History Confirmed 08/14/24] Amlodipine Besylate 5 mg [Norvasc 5 mg] 5 mg PO DAILY 08/23/21 [History Confirmed 08/14/24] Calcium Carbonate/Vitamin D3 [Calcium 600 with Vit D Chew Tb] 600 mg PO BID 08/23/21 [History Confirmed 08/14/24] Multivitamin [Multivitamins] 1 each PO DAILY 08/23/21 [History Confirmed 08/14/24] Cholecalciferol (Vitamin D3) [Vitamin D3] 50 mcg PO DAILY 08/14/24 [History Confirmed 08/14/24] Allergies/Adverse Reactions: Allergies Allergy/AdvReac Type Severity Reaction Status Date / Time bee Allergy Severe Uncoded 08/14/24 17:41 - Past Medical History Past Medical History: Yes Neurological History: Migraines ENT History: No Pertinent History Cardiac History: Hypertension Respiratory History: No Pertinent History Endocrine Medical History: No Pertinent History Musculoskelatal History: No Pertinent History GI Medical History: No Pertinent History, Gallbladder Disease History: No Pertinent History Pyscho-Social History: Anxiety Reproductive Disorders: No Pertinent History Comment: pt has hx of cervical cancer - Past Surgical History Past Surgical History: Yes Neuro Surgical History: No Pertinent History Cardiac History: No Pertinent History Respiratory Surgery: No Pertinent History GI Surgical History: Cholecystectomy Genitourinary Surgical Hx: No Pertinent History Musculskeletal Surgical Hx: No Pertinent History Female Surgical History: Hysterectomy, Dilation & Curettage Other Surgical History: cyst removed from face Significant Family History: heart disease, diabetes - Social History Smoking Status: Current every day smoker How long have you smoked: years Exposure to second hand smoke: Yes Alcohol: None Drug Use: none - Social Determinants of Health Will the patient participate in the screening: Yes Do you worry about a steady place to live?: No Do you have any problems with any of the following?: No known problems In the past 12 months,have you had to go without utilities?: No Have you or anyone in your house had to go without enough: No Transportation Issues: No Has anyone in your support network made you feel unsafe?: No - Physical Exam Vital Signs: Vital Signs - 24 hr Temp Pulse Resp BP BP Pulse Ox 08/14/24 17:00 81 17 151/75 95 08/14/24 16:32 78 28 H 146/70 96 08/14/24 16:29 96 08/14/24 16:00 97 H 22 140/66 08/14/24 15:30 78 20 135/72 94 L 08/14/24 15:00 73 17 135/64 94 L 08/14/24 14:30 76 21 138/70 93 L 08/14/24 14:00 71 19 150/76 95 08/14/24 13:30 70 23 144/66 08/14/24 13:00 69 20 144/68 95 08/14/24 12:38 72 L 08/14/24 12:30 75 142/78 95 08/14/24 12:20 98 F 73 17 144/73 96 General Appearance: no apparent distress Neurologic Exam: alert, oriented x 3, cooperative Eye Exam: PERRL/EOMI Ears, Nose, Throat Exam: normal ENT inspection Neck Exam: normal inspection Respiratory Exam: normal breath sounds, lungs clear Cardiovascular Exam: regular rate/rhythm, normal heart sounds Gastrointestinal/Abdomen Exam: soft, normal bowel sounds Pelvic Exam: not done Rectal Exam: deferred Back Exam: normal inspection Extremity Exam: other (Trace BLE edema) Skin Exam: other (contusion with a superficial abrasion to the posterior scalp just right of midline) Results - Labs Lab/Micro Results: Lab Results-Last 24 Hours 08/14/24 08/14/24 08/14/24 Range/Units 12:56 12:56 12:56 WBC 7.1 (3.98-10.04) x10^3/uL RBC 4.18 (3.93-5.22) x10^6/uL Hgb 12.8 (11.2-15.7) g/dL Hct 38.5 (34.1-44.9) % MCV 92.1 (79.4-94.8) fL MCH 30.6 (25.6-32.2) pg MCHC 33.2 (32.2-35.5) g/dL RDW 13.6 (11.7-14.4) % Plt Count 231 (182-369) x10^3/uL MPV 10.3 (9.4-12.3) fL Gran % 68.9 (34.0-71.1) % Immature Gran % (Auto) 0.4 (0.001-0.429) % Nucleat RBC Rel Count 0.0 (0.00-0.2) % Eos # (Auto) 0.07 (0.04-0.36) x10^3/uL Immature Gran # (Auto) 0.03 (0.001-0.031) x10^3u/L Absolute Lymphs (auto) 0.88 L (1.18-3.74) x10^3/uL Absolute Monos (auto) 1.15 H (0.24-0.86) x10^3/uL Absolute Nucleated RBC 0.00 (0.00-0.012) x10^3u/L Lymphocytes % 12.4 L (19.3-51.7) % Monocytes % 16.3 H (4.7-12.5) % Eosinophils % 1.0 (0.7-5.8) % Basophils % 1.0 (0.1-1.2) % Absolute Granulocytes 4.87 (1.56-6.13) x10^3/uL Basophils # 0.07 (0.01-0.08) x10^3/uL Sodium 137 (135-145) mmol/L Potassium 4.1 (3.5-5.1) mmol/L Chloride 102 (98-107) mmol/L Carbon Dioxide 28 (22-30) mmol/L Anion Gap 10.6 (5-15) MEQ/L BUN 12 (7-17) mg/dL Creatinine 0.97 (0.52-1.04) mg/dL Estimated GFR 62.5 ML/MIN Glucose 94 (74-106) mg/dL Calcium 9.1 (8.4-10.2) mg/dL Total Bilirubin 0.30 (0.2-1.3) mg/dL AST 45 H (14-36) U/L ALT 31 (0-35) U/L Alkaline Phosphatase 53 (38-126) U/L Troponin I < 0.012 (0.000-0.033) ng/mL Serum Total Protein 7.3 (6.3-8.2) g/dL Albumin 4.4 (3.5-5.0) g/dL Urine Color (Yellow) Urine Appearance (Clear) Urine pH (4.6-8.0) Ur Specific [place] (1.005-1.030) Urine Protein (Negative) Urine Glucose (UA) (Negative) mg/dL Urine Ketones (Negative) Urine Blood (Negative) Urine Nitrite (Negative) Urine Bilirubin (Negative) Urine Urobilinogen (0.2) mg/dL Ur Leukocyte Esterase (Negative) U Hyaline Cast (Auto) (0-2) /LPF Urine Microscopic RBC (0-5) /HPF Urine Microscopic WBC (0-5) /HPF Ur Epithelial Cells (None Seen) /HPF Urine Bacteria (None Seen) /HPF Urine Culture Reflexed (NO) 08/14/24 08/14/24 Range/Units 14:11 14:45 WBC (3.98-10.04) x10^3/uL RBC (3.93-5.22) x10^6/uL Hgb (11.2-15.7) g/dL Hct (34.1-44.9) % MCV (79.4-94.8) fL MCH (25.6-32.2) pg MCHC (32.2-35.5) g/dL RDW (11.7-14.4) % Plt Count (182-369) x10^3/uL MPV (9.4-12.3) fL Gran % (34.0-71.1) % Immature Gran % (Auto) (0.001-0.429) % Nucleat RBC Rel Count (0.00-0.2) % Eos # (Auto) (0.04-0.36) x10^3/uL Immature Gran # (Auto) (0.001-0.031) x10^3u/L Absolute Lymphs (auto) (1.18-3.74) x10^3/uL Absolute Monos (auto) (0.24-0.86) x10^3/uL Absolute Nucleated RBC (0.00-0.012) x10^3u/L Lymphocytes % (19.3-51.7) % Monocytes % (4.7-12.5) % Eosinophils % (0.7-5.8) % Basophils % (0.1-1.2) % Absolute Granulocytes (1.56-6.13) x10^3/uL Basophils # (0.01-0.08) x10^3/uL Sodium (135-145) mmol/L Potassium (3.5-5.1) mmol/L Chloride (98-107) mmol/L Carbon Dioxide (22-30) mmol/L Anion Gap (5-15) MEQ/L BUN (7-17) mg/dL Creatinine (0.52-1.04) mg/dL Estimated GFR ML/MIN Glucose (74-106) mg/dL Calcium (8.4-10.2) mg/dL Total Bilirubin (0.2-1.3) mg/dL AST (14-36) U/L ALT (0-35) U/L Alkaline Phosphatase (38-126) U/L Troponin I < 0.012 (0.000-0.033) ng/mL Serum Total Protein (6.3-8.2) g/dL Albumin (3.5-5.0) g/dL Urine Color Yellow (Yellow) Urine Appearance Cloudy A (Clear) Urine pH 6.0 (4.6-8.0) Ur Specific [place] 1.015 (1.005-1.030) Urine Protein Negative (Negative) Urine Glucose (UA) Negative (Negative) mg/dL Urine Ketones 15 A (Negative) Urine Blood Small A (Negative) Urine Nitrite Negative (Negative) Urine Bilirubin Negative (Negative) Urine Urobilinogen 0.2 (0.2) mg/dL Ur Leukocyte Esterase Large A (Negative) U Hyaline Cast (Auto) 3-5 A (0-2) /LPF Urine Microscopic RBC 11-20 A (0-5) /HPF Urine Microscopic WBC 21-50 A (0-5) /HPF Ur Epithelial Cells Few (None Seen) /HPF Urine Bacteria Many A (None Seen) /HPF Urine Culture Reflexed YES (NO) - Radiology Impressions Radiology Exams & Impressions: Radiology Procedures Category Date Time Status HEAD WITHOUT CONTRAST [CT] Stat Exams 08/14/24 12:37 Completed Assessment/Plan (1) Syncope and collapse Current Visit: Yes Status: Acute Assessment & Plan: -IVF -CT head reviewed with no acute findings -? infectious etiology with UTI -orthostatic vitals -carotid US -Med review -PT/OT -EKG unremarkable -trops x 2 WNL -echo -Tele Code(s): R55 - SYNCOPE AND COLLAPSE (2) UTI (urinary tract infection) Current Visit: Yes Status: Acute Assessment & Plan: -UA suspicious for infection, ceftriaxone started in ED, will continue and follow culture -Previous culture from May reviewed with mixed Clifford - Cipro prescribed - full course taken Code(s): N39.0 - URINARY TRACT INFECTION, SITE NOT SPECIFIED (3) HTN (hypertension) Current Visit: Yes Status: Acute Assessment & Plan: -BP stable - continue home meds Code(s): I10 - ESSENTIAL (PRIMARY) HYPERTENSION (4) Diarrhea Current Visit: Yes Status: Acute Assessment & Plan: -stool studies with culture/cdiff/ o&P VTE: SCD Dispo: Home 1-2 days Code status: Full code Code(s): R19.7 - DIARRHEA, UNSPECIFIED <MARYANN MANJARREZ - Last Filed: 08/14/24 21:24> History of Present Illness - Chief Complaint History of Present Illness: is a 69 year old female. - Physical Exam Vital Signs: Vital Signs - 24 hr Temp Pulse Resp BP BP Pulse Ox 08/14/24 20:00 16 08/14/24 19:49 97.9 F 80 16 132/61 92 L 08/14/24 17:53 98.5 F 79 17 150/67 97 08/14/24 17:32 95 08/14/24 17:00 81 17 151/75 95 08/14/24 16:32 78 28 H 146/70 96 08/14/24 16:29 96 08/14/24 16:00 97 H 22 140/66 08/14/24 15:30 78 20 135/72 94 L 08/14/24 15:00 73 17 135/64 94 L 08/14/24 14:30 76 21 138/70 93 L 08/14/24 14:00 71 19 150/76 95 08/14/24 13:30 70 23 144/66 08/14/24 13:00 69 20 144/68 95 08/14/24 12:38 72 L 08/14/24 12:30 75 142/78 95 08/14/24 12:20 98 F 73 17 144/73 96 Results - Labs Lab/Micro Results: Lab Results-Last 24 Hours 08/14/24 08/14/24 08/14/24 Range/Units 12:56 12:56 12:56 WBC 7.1 (3.98-10.04) x10^3/uL RBC 4.18 (3.93-5.22) x10^6/uL Hgb 12.8 (11.2-15.7) g/dL Hct 38.5 (34.1-44.9) % MCV 92.1 (79.4-94.8) fL MCH 30.6 (25.6-32.2) pg MCHC 33.2 (32.2-35.5) g/dL RDW 13.6 (11.7-14.4) % Plt Count 231 (182-369) x10^3/uL MPV 10.3 (9.4-12.3) fL Gran % 68.9 (34.0-71.1) % Immature Gran % (Auto) 0.4 (0.001-0.429) % Nucleat RBC Rel Count 0.0 (0.00-0.2) % Eos # (Auto) 0.07 (0.04-0.36) x10^3/uL Immature Gran # (Auto) 0.03 (0.001-0.031) x10^3u/L Absolute Lymphs (auto) 0.88 L (1.18-3.74) x10^3/uL Absolute Monos (auto) 1.15 H (0.24-0.86) x10^3/uL Absolute Nucleated RBC 0.00 (0.00-0.012) x10^3u/L Lymphocytes % 12.4 L (19.3-51.7) % Monocytes % 16.3 H (4.7-12.5) % Eosinophils % 1.0 (0.7-5.8) % Basophils % 1.0 (0.1-1.2) % Absolute Granulocytes 4.87 (1.56-6.13) x10^3/uL Basophils # 0.07 (0.01-0.08) x10^3/uL Sodium 137 (135-145) mmol/L Potassium 4.1 (3.5-5.1) mmol/L Chloride 102 (98-107) mmol/L Carbon Dioxide 28 (22-30) mmol/L Anion Gap 10.6 (5-15) MEQ/L BUN 12 (7-17) mg/dL Creatinine 0.97 (0.52-1.04) mg/dL Estimated GFR 62.5 ML/MIN Glucose 94 (74-106) mg/dL Calcium 9.1 (8.4-10.2) mg/dL Total Bilirubin 0.30 (0.2-1.3) mg/dL AST 45 H (14-36) U/L ALT 31 (0-35) U/L Alkaline Phosphatase 53 (38-126) U/L Troponin I < 0.012 (0.000-0.033) ng/mL Serum Total Protein 7.3 (6.3-8.2) g/dL Albumin 4.4 (3.5-5.0) g/dL TSH 3rd Generation (0.470-4.680) mIU/L Urine Color (Yellow) Urine Appearance (Clear) Urine pH (4.6-8.0) Ur Specific [place] (1.005-1.030) Urine Protein (Negative) Urine Glucose (UA) (Negative) mg/dL Urine Ketones (Negative) Urine Blood (Negative) Urine Nitrite (Negative) Urine Bilirubin (Negative) Urine Urobilinogen (0.2) mg/dL Ur Leukocyte Esterase (Negative) U Hyaline Cast (Auto) (0-2) /LPF Urine Microscopic RBC (0-5) /HPF Urine Microscopic WBC (0-5) /HPF Ur Epithelial Cells (None Seen) /HPF Urine Bacteria (None Seen) /HPF Urine Culture Reflexed (NO) 08/14/24 08/14/24 08/14/24 Range/Units 14:11 14:45 14:45 WBC (3.98-10.04) x10^3/uL RBC (3.93-5.22) x10^6/uL Hgb (11.2-15.7) g/dL Hct (34.1-44.9) % MCV (79.4-94.8) fL MCH (25.6-32.2) pg MCHC (32.2-35.5) g/dL RDW (11.7-14.4) % Plt Count (182-369) x10^3/uL MPV (9.4-12.3) fL Gran % (34.0-71.1) % Immature Gran % (Auto) (0.001-0.429) % Nucleat RBC Rel Count (0.00-0.2) % Eos # (Auto) (0.04-0.36) x10^3/uL Immature Gran # (Auto) (0.001-0.031) x10^3u/L Absolute Lymphs (auto) (1.18-3.74) x10^3/uL Absolute Monos (auto) (0.24-0.86) x10^3/uL Absolute Nucleated RBC (0.00-0.012) x10^3u/L Lymphocytes % (19.3-51.7) % Monocytes % (4.7-12.5) % Eosinophils % (0.7-5.8) % Basophils % (0.1-1.2) % Absolute Granulocytes (1.56-6.13) x10^3/uL Basophils # (0.01-0.08) x10^3/uL Sodium (135-145) mmol/L Potassium (3.5-5.1) mmol/L Chloride (98-107) mmol/L Carbon Dioxide (22-30) mmol/L Anion Gap (5-15) MEQ/L BUN (7-17) mg/dL Creatinine (0.52-1.04) mg/dL Estimated GFR ML/MIN Glucose (74-106) mg/dL Calcium (8.4-10.2) mg/dL Total Bilirubin (0.2-1.3) mg/dL AST (14-36) U/L ALT (0-35) U/L Alkaline Phosphatase (38-126) U/L Troponin I < 0.012 (0.000-0.033) ng/mL Serum Total Protein (6.3-8.2) g/dL Albumin (3.5-5.0) g/dL TSH 3rd Generation 1.624 (0.470-4.680) mIU/L Urine Color Yellow (Yellow) Urine Appearance Cloudy A (Clear) Urine pH 6.0 (4.6-8.0) Ur Specific [place] 1.015 (1.005-1.030) Urine Protein Negative (Negative) Urine Glucose (UA) Negative (Negative) mg/dL Urine Ketones 15 A (Negative) Urine Blood Small A (Negative) Urine Nitrite Negative (Negative) Urine Bilirubin Negative (Negative) Urine Urobilinogen 0.2 (0.2) mg/dL Ur Leukocyte Esterase Large A (Negative) U Hyaline Cast (Auto) 3-5 A (0-2) /LPF Urine Microscopic RBC 11-20 A (0-5) /HPF Urine Microscopic WBC 21-50 A (0-5) /HPF Ur Epithelial Cells Few (None Seen) /HPF Urine Bacteria Many A (None Seen) /HPF Urine Culture Reflexed YES (NO) 08/14/24 Range/Units 20:30 WBC (3.98-10.04) x10^3/uL RBC (3.93-5.22) x10^6/uL Hgb (11.2-15.7) g/dL Hct (34.1-44.9) % MCV (79.4-94.8) fL MCH (25.6-32.2) pg MCHC (32.2-35.5) g/dL RDW (11.7-14.4) % Plt Count (182-369) x10^3/uL MPV (9.4-12.3) fL Gran % (34.0-71.1) % Immature Gran % (Auto) (0.001-0.429) % Nucleat RBC Rel Count (0.00-0.2) % Eos # (Auto) (0.04-0.36) x10^3/uL Immature Gran # (Auto) (0.001-0.031) x10^3u/L Absolute Lymphs (auto) (1.18-3.74) x10^3/uL Absolute Monos (auto) (0.24-0.86) x10^3/uL Absolute Nucleated RBC (0.00-0.012) x10^3u/L Lymphocytes % (19.3-51.7) % Monocytes % (4.7-12.5) % Eosinophils % (0.7-5.8) % Basophils % (0.1-1.2) % Absolute Granulocytes (1.56-6.13) x10^3/uL Basophils # (0.01-0.08) x10^3/uL Sodium (135-145) mmol/L Potassium (3.5-5.1) mmol/L Chloride (98-107) mmol/L Carbon Dioxide (22-30) mmol/L Anion Gap (5-15) MEQ/L BUN (7-17) mg/dL Creatinine (0.52-1.04) mg/dL Estimated GFR ML/MIN Glucose (74-106) mg/dL Calcium (8.4-10.2) mg/dL Total Bilirubin (0.2-1.3) mg/dL AST (14-36) U/L ALT (0-35) U/L Alkaline Phosphatase (38-126) U/L Troponin I < 0.012 (0.000-0.033) ng/mL Serum Total Protein (6.3-8.2) g/dL Albumin (3.5-5.0) g/dL TSH 3rd Generation (0.470-4.680) mIU/L Urine Color (Yellow) Urine Appearance (Clear) Urine pH (4.6-8.0) Ur Specific [place] (1.005-1.030) Urine Protein (Negative) Urine Glucose (UA) (Negative) mg/dL Urine Ketones (Negative) Urine Blood (Negative) Urine Nitrite (Negative) Urine Bilirubin (Negative) Urine Urobilinogen (0.2) mg/dL Ur Leukocyte Esterase (Negative) U Hyaline Cast (Auto) (0-2) /LPF Urine Microscopic RBC (0-5) /HPF Urine Microscopic WBC (0-5) /HPF Ur Epithelial Cells (None Seen) /HPF Urine Bacteria (None Seen) /HPF Urine Culture Reflexed (NO) Microbiology 08/14/24 Unknown Stool Culture Result 1 - Final Stool Not Reportable Stool Culture Result 2 - Final Not Reportable Stool Culture Result 3 - Final Not Reportable Stool Culture Result 4 - Final Not Reportable Stool Culture Organism Suscept - Final Not Reportable Campylobacter Result 1 - Final Not Reportable Campylobacter Result 2 - Final Not Reportable Campylobactor Result 3 - Final Not Reportable Campylobacter Result 4 - Final Not Reportable Campylobactor Susceptibility - Final Not Reportable - Radiology Impressions Radiology Exams & Impressions: Radiology Procedures Category Date Time Status CAROTID BILATERAL [US] Routine Exams 08/14/24 18:19 Ordered ECHO W/2D AND DOPPLER [US] Routine Exams 08/14/24 18:26 Ordered HEAD WITHOUT CONTRAST [CT] Stat Exams 08/14/24 12:37 Completed - Other Procedures and Tests Respiratory Therapy 08/14/24 18:17 EKG REPEAT IN AM ANTHONY Encounter - ANTHONY Encounter Attestation ANTHONY Encounter Attestation: "ALEXEY Horn andhavediscussed pertinent aspects of their care with Paxton Sanches agree with the history, physical exam (any modifications based on my personal exam will be noted below), assessment, and plan as outlined in original note. Please see immediately below for my summary of findings and additional assessment and plan along with any meaningful corrections/explanations to the Subjective/Objective portions of the ANTHONY note will be noted." My portion of the encounter took place via telemedicine. -Diarrhea for 2 weeks, now improving. Presenting with syncope. Possibly due to hypovolemia however her labs do not reflect that. Vasovagal is another possibility. Will admit to complete work up with telemetry, echo, carotid US, orthostatic vitals.
[2024-08-14] MEDS ORDERED: Zofran 4 MG/2 ML VIAL IV PRN (18:17)
[2024-08-14] MEDS: Nicoderm CQ 21 MG TOP SCH (20:09)
[2024-08-14] MEDS: MELATONIN PO PRN (21:09)
[2024-08-14] MEDS: [UNRECOGNIZED DRUG - OTHER] PO SCH (21:18)
[2024-08-14] MEDS: CALCIUM CARBONATE PO SCH (21:18)
[2024-08-14] MEDS: VITAMIN D3 PO SCH (21:18)
[2024-08-15] MEDS: TYLENOL 325 MG PO PRN (02:37)
--- NOTE | 2024-08-15 05:04 | PCM.NOTE ---
Date and Time: 08/15/24 0502 Subjective Assessment: HPI: is a 69 year old female HTN, and cervical cancer who presented to ED for evaluation on 08/14/24 following a syncopal episode at home. Patient reports that she contracted the stomach flu from her grandson around July the and for the past several weeks she has been experiencing bouts of diarrhea with resultant weakness but has not been seen OP. She reports that she was getting a cup of coffee this morning and began feeling lightheaded. She sat down at the table and when she went to stand up again she passed out hitting her head. Son states that the entire episode lasted less than 2 mins. No shaking or jerking. Patient was slightly confused when she came to but recovered quickly. Patient has a contusion with a superficial abrasion to the posterior scalp just right of midline. Laceration repair not indicated. She states she is still having diarrhea but it has slowed down to 2-3 watery stools daily. Her appetite and energy have been poor. No hematochezia. Of note she was treated for a UTI in May and seen at [facility]. Ucult shows mixed clifford. She was prescribed cipro and took the full course. Denies fever,cough, sob, cp, abdominal pain, dysuria, hematuria, HOANG, N/V. Upon arrival to ED, vitals stable. EKG per ED report -RATE (67), Sinus Rhythm, NORMAL AXIS, NORMAL INTERVALS, NORMAL QRS. T head with no acute findings. Lab findings remarkable with UA suspicious for infection. CBC and chemistries unremarkable. Patient given fluid bolus and ceftriaxone in ED. Objective Data Vital Signs: Vital Signs - 24 hr Temp Pulse Resp BP BP Pulse Ox 08/15/24 04:00 18 08/15/24 03:51 97.1 F 68 18 167/74 94 L 08/15/24 00:00 16 08/14/24 23:20 97.9 F 71 16 148/65 92 L 08/14/24 20:00 16 08/14/24 19:49 97.9 F 80 16 132/61 92 L 08/14/24 17:53 98.5 F 79 17 150/67 97 08/14/24 17:32 95 08/14/24 17:00 81 17 151/75 95 08/14/24 16:32 78 28 H 146/70 96 08/14/24 16:29 96 01/22/25 16:00 97 H 22 140/66 08/14/24 15:30 78 20 135/72 94 L 08/14/24 15:00 73 17 135/64 94 L 08/14/24 14:30 76 21 138/70 93 L 08/14/24 14:00 71 19 150/76 95 08/14/24 13:30 70 23 144/66 08/14/24 13:00 69 20 144/68 95 08/14/24 12:38 72 L 08/14/24 12:30 75 142/78 95 08/14/24 12:20 98 F 73 17 144/73 96 Pain Assessment - Last Documented Pain Intensity 5 Pain Scale Used 0-10 Pain Scale Intake and Output: Intake & Output 08/12/24 08/13/24 08/14/24 08/15/24 11:59 11:59 11:59 11:59 Intake Total 100 Balance 100 Weight 79.3 kg Lab Results: Lab Results-Last 24 Hours 08/14/24 08/14/24 08/14/24 Range/Units 12:56 12:56 12:56 WBC 7.1 (3.98-10.04) x10^3/uL RBC 4.18 (3.93-5.22) x10^6/uL Hgb 12.8 (11.2-15.7) g/dL Hct 38.5 (34.1-44.9) % MCV 92.1 (79.4-94.8) fL MCH 30.6 (25.6-32.2) pg MCHC 33.2 (32.2-35.5) g/dL RDW 13.6 (11.7-14.4) % Plt Count 231 (182-369) x10^3/uL MPV 10.3 (9.4-12.3) fL Gran % 68.9 (34.0-71.1) % Immature Gran % (Auto) 0.4 (0.001-0.429) % Nucleat RBC Rel Count 0.0 (0.00-0.2) % Eos # (Auto) 0.07 (0.04-0.36) x10^3/uL Immature Gran # (Auto) 0.03 (0.001-0.031) x10^3u/L Absolute Lymphs (auto) 0.88 L (1.18-3.74) x10^3/uL Absolute Monos (auto) 1.15 H (0.24-0.86) x10^3/uL Absolute Nucleated RBC 0.00 (0.00-0.012) x10^3u/L Lymphocytes % 12.4 L (19.3-51.7) % Monocytes % 16.3 H (4.7-12.5) % Eosinophils % 1.0 (0.7-5.8) % Basophils % 1.0 (0.1-1.2) % Absolute Granulocytes 4.87 (1.56-6.13) x10^3/uL Basophils # 0.07 (0.01-0.08) x10^3/uL Sodium 137 (135-145) mmol/L Potassium 4.1 (3.5-5.1) mmol/L Chloride 102 (98-107) mmol/L Carbon Dioxide 28 (22-30) mmol/L Anion Gap 10.6 (5-15) MEQ/L BUN 12 (7-17) mg/dL Creatinine 0.97 (0.52-1.04) mg/dL Estimated GFR 62.5 ML/MIN Glucose 94 (74-106) mg/dL Calcium 9.1 (8.4-10.2) mg/dL Total Bilirubin 0.30 (0.2-1.3) mg/dL AST 45 H (14-36) U/L ALT 31 (0-35) U/L Alkaline Phosphatase 53 (38-126) U/L Troponin I < 0.012 (0.000-0.033) ng/mL Serum Total Protein 7.3 (6.3-8.2) g/dL Albumin 4.4 (3.5-5.0) g/dL TSH 3rd Generation (0.470-4.680) mIU/L Urine Color (Yellow) Urine Appearance (Clear) Urine pH (4.6-8.0) Ur Specific [place] (1.005-1.030) Urine Protein (Negative) Urine Glucose (UA) (Negative) mg/dL Urine Ketones (Negative) Urine Blood (Negative) Urine Nitrite (Negative) Urine Bilirubin (Negative) Urine Urobilinogen (0.2) mg/dL Ur Leukocyte Esterase (Negative) U Hyaline Cast (Auto) (0-2) /LPF Urine Microscopic RBC (0-5) /HPF Urine Microscopic WBC (0-5) /HPF Ur Epithelial Cells (None Seen) /HPF Urine Bacteria (None Seen) /HPF Urine Culture Reflexed (NO) 08/14/24 08/14/24 08/14/24 Range/Units 14:11 14:45 14:45 WBC (3.98-10.04) x10^3/uL RBC (3.93-5.22) x10^6/uL Hgb (11.2-15.7) g/dL Hct (34.1-44.9) % MCV (79.4-94.8) fL MCH (25.6-32.2) pg MCHC (32.2-35.5) g/dL RDW (11.7-14.4) % Plt Count (182-369) x10^3/uL MPV (9.4-12.3) fL Gran % (34.0-71.1) % Immature Gran % (Auto) (0.001-0.429) % Nucleat RBC Rel Count (0.00-0.2) % Eos # (Auto) (0.04-0.36) x10^3/uL Immature Gran # (Auto) (0.001-0.031) x10^3u/L Absolute Lymphs (auto) (1.18-3.74) x10^3/uL Absolute Monos (auto) (0.24-0.86) x10^3/uL Absolute Nucleated RBC (0.00-0.012) x10^3u/L Lymphocytes % (19.3-51.7) % Monocytes % (4.7-12.5) % Eosinophils % (0.7-5.8) % Basophils % (0.1-1.2) % Absolute Granulocytes (1.56-6.13) x10^3/uL Basophils # (0.01-0.08) x10^3/uL Sodium (135-145) mmol/L Potassium (3.5-5.1) mmol/L Chloride (98-107) mmol/L Carbon Dioxide (22-30) mmol/L Anion Gap (5-15) MEQ/L BUN (7-17) mg/dL Creatinine (0.52-1.04) mg/dL Estimated GFR ML/MIN Glucose (74-106) mg/dL Calcium (8.4-10.2) mg/dL Total Bilirubin (0.2-1.3) mg/dL AST (14-36) U/L ALT (0-35) U/L Alkaline Phosphatase (38-126) U/L Troponin I < 0.012 (0.000-0.033) ng/mL Serum Total Protein (6.3-8.2) g/dL Albumin (3.5-5.0) g/dL TSH 3rd Generation 1.624 (0.470-4.680) mIU/L Urine Color Yellow (Yellow) Urine Appearance Cloudy A (Clear) Urine pH 6.0 (4.6-8.0) Ur Specific [place] 1.015 (1.005-1.030) Urine Protein Negative (Negative) Urine Glucose (UA) Negative (Negative) mg/dL Urine Ketones 15 A (Negative) Urine Blood Small A (Negative) Urine Nitrite Negative (Negative) Urine Bilirubin Negative (Negative) Urine Urobilinogen 0.2 (0.2) mg/dL Ur Leukocyte Esterase Large A (Negative) U Hyaline Cast (Auto) 3-5 A (0-2) /LPF Urine Microscopic RBC 11-20 A (0-5) /HPF Urine Microscopic WBC 21-50 A (0-5) /HPF Ur Epithelial Cells Few (None Seen) /HPF Urine Bacteria Many A (None Seen) /HPF Urine Culture Reflexed YES (NO) 08/14/24 Range/Units 20:30 WBC (3.98-10.04) x10^3/uL RBC (3.93-5.22) x10^6/uL Hgb (11.2-15.7) g/dL Hct (34.1-44.9) % MCV (79.4-94.8) fL MCH (25.6-32.2) pg MCHC (32.2-35.5) g/dL RDW (11.7-14.4) % Plt Count (182-369) x10^3/uL MPV (9.4-12.3) fL Gran % (34.0-71.1) % Immature Gran % (Auto) (0.001-0.429) % Nucleat RBC Rel Count (0.00-0.2) % Eos # (Auto) (0.04-0.36) x10^3/uL Immature Gran # (Auto) (0.001-0.031) x10^3u/L Absolute Lymphs (auto) (1.18-3.74) x10^3/uL Absolute Monos (auto) (0.24-0.86) x10^3/uL Absolute Nucleated RBC (0.00-0.012) x10^3u/L Lymphocytes % (19.3-51.7) % Monocytes % (4.7-12.5) % Eosinophils % (0.7-5.8) % Basophils % (0.1-1.2) % Absolute Granulocytes (1.56-6.13) x10^3/uL Basophils # (0.01-0.08) x10^3/uL Sodium (135-145) mmol/L Potassium (3.5-5.1) mmol/L Chloride (98-107) mmol/L Carbon Dioxide (22-30) mmol/L Anion Gap (5-15) MEQ/L BUN (7-17) mg/dL Creatinine (0.52-1.04) mg/dL Estimated GFR ML/MIN Glucose (74-106) mg/dL Calcium (8.4-10.2) mg/dL Total Bilirubin (0.2-1.3) mg/dL AST (14-36) U/L ALT (0-35) U/L Alkaline Phosphatase (38-126) U/L Troponin I < 0.012 (0.000-0.033) ng/mL Serum Total Protein (6.3-8.2) g/dL Albumin (3.5-5.0) g/dL TSH 3rd Generation (0.470-4.680) mIU/L Urine Color (Yellow) Urine Appearance (Clear) Urine pH (4.6-8.0) Ur Specific [place] (1.005-1.030) Urine Protein (Negative) Urine Glucose (UA) (Negative) mg/dL Urine Ketones (Negative) Urine Blood (Negative) Urine Nitrite (Negative) Urine Bilirubin (Negative) Urine Urobilinogen (0.2) mg/dL Ur Leukocyte Esterase (Negative) U Hyaline Cast (Auto) (0-2) /LPF Urine Microscopic RBC (0-5) /HPF Urine Microscopic WBC (0-5) /HPF Ur Epithelial Cells (None Seen) /HPF Urine Bacteria (None Seen) /HPF Urine Culture Reflexed (NO) Radiology Exams: Radiology Procedures Category Date Time Status CAROTID BILATERAL [US] Routine Exams 08/14/24 18:19 Ordered ECHO W/2D AND DOPPLER [US] Routine Exams 08/14/24 18:26 Ordered HEAD WITHOUT CONTRAST [CT] Stat Exams 08/14/24 12:37 Completed Assessment/Plan (1) Syncope and collapse Current Visit: Yes Status: Acute Assessment & Plan: -IVF -CT head reviewed with no acute findings -? infectious etiology with UTI vs vasovagal/hypovolemia -orthostatic vitals -carotid US -Med review -PT/OT -EKG unremarkable -trops x 2 WNL -echo -Tele : -Cmp/CBC reviewed and unremarkable -cardiology consult pending -Echo pending -Carotid US Code(s): R55 - SYNCOPE AND COLLAPSE (2) UTI (urinary tract infection) Current Visit: Yes Status: Acute Assessment & Plan: -UA suspicious for infection, ceftriaxone started in ED, will continue and follow culture -Previous culture from May reviewed with mixed Clifford - Cipro prescribed - full course taken 08/15: -Ucult pending Code(s): N39.0 - URINARY TRACT INFECTION, SITE NOT SPECIFIED (3) HTN (hypertension) Current Visit: Yes Status: Acute Assessment & Plan: -BP stable - continue home meds Code(s): I10 - ESSENTIAL (PRIMARY) HYPERTENSION (4) Diarrhea Current Visit: Yes Status: Acute Assessment & Plan: -stool studies with culture/cdiff/ o&P 08/15: -CDiff negative -Stool studies pending VTE: SCD Dispo: Home 1-2 days Code status: Full code Code(s): R19.7 - DIARRHEA, UNSPECIFIED Code(s): R55 - SYNCOPE AND COLLAPSE (2) UTI (urinary tract infection) Current Visit: Yes Status: Acute Code(s): N39.0 - URINARY TRACT INFECTION, SITE NOT SPECIFIED (3) HTN (hypertension) Current Visit: Yes Status: Acute Code(s): I10 - ESSENTIAL (PRIMARY) HYPERTENSION (4) Diarrhea Current Visit: Yes Status: Acute Code(s): R19.7 - DIARRHEA, UNSPECIFIED
[2024-08-15 05:21] LABS: Absolute Neutrophil Ct (ANC) 2.65 x10^3/uL (1.56-6.13); BASOPHIL % 0.7 % (0.1-1.2); Basophil (Absolute #) 0.04 x10^3/uL (0.01-0.08); Eosinophil % 2.4 % (0.7-5.8); Eosinophil (Absolute #) 0.13 x10^3/uL (0.04-0.36); Hematocrit 37.3 % (34.1-44.9); Hemoglobin 12.3 g/dL (11.2-15.7); IMMATURE GRAN # 0.02 x10^3u/L (0.001-0.031); IMMATURE GRAN % 0.4 % (0.001-0.429); Lymphocyte (Absolute #) 1.28 x10^3/uL (1.18-3.74); Lymphocytes % 23.9 % (19.3-51.7); Mean Cell Volume 92.1 fL (79.4-94.8); Mean Corpuscular Hemoglobin 30.4 pg (25.6-32.2); Mean Platelet Volume 10.9 fL (9.4-12.3); Monocyte (Absolute #) 1.23 x10^3/uL (0.24-0.86); Neutrophil % 49.6 % (34.0-71.1); Platelet Count 210 x10^3/uL (182-369); Red Blood Count 4.05 x10^6/uL (3.93-5.22); Red Cell Distribution Width 13.4 % (11.7-14.4); White Blood Count 5.4 x10^3/uL (3.98-10.04)
[2024-08-15 05:49] LABS: ALBUMIN 4.1 g/dL (3.5-5.0); ANION GAP 9.2 MEQ/L (5-15); BILIRUBIN,TOTAL 0.3 mg/dL (0.2-1.3); Calcium 8.4 mg/dL (8.4-10.2); Creatinine 1 0.84 mg/dL (0.52-1.04); EST GLOMERULAR FILTRATION RATE 74.3 ML/MIN; Potassium 3.6 mmol/L (3.5-5.1)
[2024-08-15] MEDS: Sodium Chloride 0.9% 1000 ML 1,000 ML IV SCH (07:53)
[2024-08-15] MEDS ORDERED: NON-FORMULARY ITEM (Cholecalciferol (Vitamin D3) [Vitamin D3] 50 MCG Capsule) PO SCH (10:00)
[2024-08-15] MEDS ORDERED: NON-FORMULARY ITEM (Multivitamin [Multivitamins] 1 EACH Tablet) PO SCH (10:00)
[2024-08-15] MEDS ORDERED: NON-FORMULARY ITEM (Citalopram Hydrobromide [Celexa] 40 MG Tablet) PO SCH (10:00)
[2024-08-15] MEDS: Calcium 500MG W/Vit D Tablet PO SCH (10:09)
[2024-08-15] MEDS: VITAMIN D PO SCH (10:09)
[2024-08-15] MEDS: NORVASC 5 MG PO SCH (10:09)
[2024-08-15] MEDS: ceLEXa 20 MG PO SCH (10:09)
[2024-08-15] MEDS: Toprol-Xl 25MG Tablets PO SCH (10:10)
[2024-08-15] MEDS: Nicoderm CQ 21 MG TOP SCH (10:10)
[2024-08-15] MEDS: THERAGRAN MULTIVITAMIN PO SCH (10:10)
[2024-08-15] MEDS: ROCEPHIN 1 GM / 100 ML NaCl 1 GM/100 ML IVPB IV SCH (10:11)
[2024-08-15 11:02] LABS: 027 TOX PROD PRESUMPTIVE NEGATIVE (NEGATIVE)
[2024-08-15 11:05] LABS: TOXIGENIC C. DIFF ORG POSITIVE (NEGATIVE)
[2024-08-15] MEDS: ULTRAM 50 MG PO PRN (11:27)
[2024-08-15 11:34] VITALS: BP 199/79; PULSE 77; TEMP 97.8; O2SAT 94
--- NOTE | 2024-08-15 11:49 | PCM.DS ---
Discharge Summary Date of Admission: 08/14/24 17:26 Date of Discharge: 08/15/24 Admitting Physician: MARYANN MANJARREZ MD Primary Care Provider: BOYD CAR DO Allergies Allergies bee Allergy (Severe, Uncoded 08/14/24 17:41) Hospital Summary - Hospital Course Hospital Course: HPI: is a 69 year old female HTN, and cervical cancer who presented to ED for evaluation on 08/14/24 following a syncopal episode at home. Patient reports that she contracted the stomach flu from her grandson around July the and for the past several weeks she has been experiencing bouts of diarrhea with resultant weakness but has not been seen OP. She reports that she was getting a cup of coffee this morning and began feeling lightheaded. She sat down at the table and when she went to stand up again she passed out hitting her head. Son states that the entire episode lasted less than 2 mins. No shaking or jerking. Patient was slightly confused when she came to but recovered quickly. Patient has a contusion with a superficial abrasion to the posterior scalp just right of midline. Laceration repair not indicated. She states she is still having diarrhea but it has slowed down to 2-3 loose stools daily. Her appetite and energy have been poor. No hematochezia. Of note she was treated for a UTI in May and seen at [facility]. Ucult shows mixed clifford. She was prescribed cipro and took the full course. Denies fever,cough, sob, cp, abdominal pain, dysuria, hematuria, HOANG, N/V. Upon arrival to ED, vitals stable. EKG per ED report -RATE (67), Sinus Rhythm, NORMAL AXIS, NORMAL INTERVALS, NORMAL QRS. T head with no acute findings. Lab findings remarkable with UA suspicious for infection. CBC and chemistries unremarkable. Patient given fluid bolus and ceftriaxone in ED. Echo and carotid performed. No further episodes of dizziness/syncope. Patient requesting discharge and is to follow up Op next week with PCP for results. Ucult with gram - ID - will send home on cefdinir. Cdiff negative for active infection. Discharge Note New Diagnosis: UTI/Syncope New Medications: Cefdinir Follow Up: PCP Results pending: Ucult - will follow Outpatient testing to order: Repeat UA Latest Assessment & Plan (1) Syncope and collapse Current Visit: Yes Status: Acute Assessment & Plan: -IVF -CT head reviewed with no acute findings -? infectious etiology with UTI vs vasovagal/hypovolemia -orthostatic vitals -carotid US -Med review -PT/OT -EKG unremarkable -trops x 2 WNL -echo -Tele : -Cmp/CBC reviewed and unremarkable -cardiology consult pending -Echo pending -Carotid US Code(s): R55 - SYNCOPE AND COLLAPSE (2) UTI (urinary tract infection) Current Visit: Yes Status: Acute Assessment & Plan: -UA suspicious for infection, ceftriaxone started in ED, will continue and follow culture -Previous culture from May reviewed with mixed Clifford - Cipro prescribed - full course taken 08/15: -Ucult pending Code(s): N39.0 - URINARY TRACT INFECTION, SITE NOT SPECIFIED (3) HTN (hypertension) Current Visit: Yes Status: Acute Assessment & Plan: -BP stable - continue home meds Code(s): I10 - ESSENTIAL (PRIMARY) HYPERTENSION (4) Diarrhea Current Visit: Yes Status: Acute Assessment & Plan: -stool studies with culture/cdiff/ o&P 08/15: -CDiff negative for active infection -Stool studies pending I spent 35 minutes [id number] with the patient on the day of discharge performing discharge exam, discussing hospital stay and discharge instructions with patient and caregivers, preparation of discharge records, prescriptions & referral forms and addressing any questions/concerns the patient had as documented above. - Vitals & Intake/Output Vital Signs: Vital Signs Temperature 97.7 F 08/15/24 06:52 Pulse Rate 69 08/15/24 06:52 Respiratory Rate 16 08/15/24 06:52 Blood Pressure 132/62 08/15/24 06:52 O2 Sat by Pulse Oximetry 93 L 08/15/24 06:52 Intake & Output: Intake & Output 08/12/24 08/13/24 08/14/24 08/15/24 11:59 11:59 11:59 11:59 Intake Total 820 Output Total 250 Balance 570 Weight 78.4 kg - Lab Result Diagrams: 08/15/24 05:15 08/15/24 05:15 Lab Results-Last 24 Hrs: Lab Results-Last 24 Hours 08/14/24 08/14/24 08/14/24 Range/Units 12:56 12:56 12:56 WBC 7.1 (3.98-10.04) x10^3/uL RBC 4.18 (3.93-5.22) x10^6/uL Hgb 12.8 (11.2-15.7) g/dL Hct 38.5 (34.1-44.9) % MCV 92.1 (79.4-94.8) fL MCH 30.6 (25.6-32.2) pg MCHC 33.2 (32.2-35.5) g/dL RDW 13.6 (11.7-14.4) % Plt Count 231 (182-369) x10^3/uL MPV 10.3 (9.4-12.3) fL Gran % 68.9 (34.0-71.1) % Immature Gran % (Auto) 0.4 (0.001-0.429) % Nucleat RBC Rel Count 0.0 (0.00-0.2) % Eos # (Auto) 0.07 (0.04-0.36) x10^3/uL Immature Gran # (Auto) 0.03 (0.001-0.031) x10^3u/L Absolute Lymphs (auto) 0.88 L (1.18-3.74) x10^3/uL Absolute Monos (auto) 1.15 H (0.24-0.86) x10^3/uL Absolute Nucleated RBC 0.00 (0.00-0.012) x10^3u/L Lymphocytes % 12.4 L (19.3-51.7) % Monocytes % 16.3 H (4.7-12.5) % Eosinophils % 1.0 (0.7-5.8) % Basophils % 1.0 (0.1-1.2) % Absolute Granulocytes 4.87 (1.56-6.13) x10^3/uL Basophils # 0.07 (0.01-0.08) x10^3/uL Sodium 137 (135-145) mmol/L Potassium 4.1 (3.5-5.1) mmol/L Chloride 102 (98-107) mmol/L Carbon Dioxide 28 (22-30) mmol/L Anion Gap 10.6 (5-15) MEQ/L BUN 12 (7-17) mg/dL Creatinine 0.97 (0.52-1.04) mg/dL Estimated GFR 62.5 ML/MIN Glucose 94 (74-106) mg/dL Calcium 9.1 (8.4-10.2) mg/dL Total Bilirubin 0.30 (0.2-1.3) mg/dL AST 45 H (14-36) U/L ALT 31 (0-35) U/L Alkaline Phosphatase 53 (38-126) U/L Troponin I < 0.012 (0.000-0.033) ng/mL Serum Total Protein 7.3 (6.3-8.2) g/dL Albumin 4.4 (3.5-5.0) g/dL Triglycerides (30-150) mg/dL Cholesterol (50-200) mg/dL LDL Cholesterol (30-100) mg/dL HDL Cholesterol (40-60) mg/dL Heart Disease Risk Ratio TSH 3rd Generation (0.470-4.680) mIU/L Urine Color (Yellow) Urine Appearance (Clear) Urine pH (4.6-8.0) Ur Specific Leeper (1.005-1.030) Urine Protein (Negative) Urine Glucose (UA) (Negative) mg/dL Urine Ketones (Negative) Urine Blood (Negative) Urine Nitrite (Negative) Urine Bilirubin (Negative) Urine Urobilinogen (0.2) mg/dL Ur Leukocyte Esterase (Negative) U Hyaline Cast (Auto) (0-2) /LPF Urine Microscopic RBC (0-5) /HPF Urine Microscopic WBC (0-5) /HPF Ur Epithelial Cells (None Seen) /HPF Urine Bacteria (None Seen) /HPF Urine Culture Reflexed (NO) C. difficile Screen (NEGATIVE) C.difficile 027-NAP1-B1 (NEGATIVE) 08/14/24 08/14/24 08/14/24 Range/Units 14:11 14:45 14:45 WBC (3.98-10.04) x10^3/uL RBC (3.93-5.22) x10^6/uL Hgb (11.2-15.7) g/dL Hct (34.1-44.9) % MCV (79.4-94.8) fL MCH (25.6-32.2) pg MCHC (32.2-35.5) g/dL RDW (11.7-14.4) % Plt Count (182-369) x10^3/uL MPV (9.4-12.3) fL Gran % (34.0-71.1) % Immature Gran % (Auto) (0.001-0.429) % Nucleat RBC Rel Count (0.00-0.2) % Eos # (Auto) (0.04-0.36) x10^3/uL Immature Gran # (Auto) (0.001-0.031) x10^3u/L Absolute Lymphs (auto) (1.18-3.74) x10^3/uL Absolute Monos (auto) (0.24-0.86) x10^3/uL Absolute Nucleated RBC (0.00-0.012) x10^3u/L Lymphocytes % (19.3-51.7) % Monocytes % (4.7-12.5) % Eosinophils % (0.7-5.8) % Basophils % (0.1-1.2) % Absolute Granulocytes (1.56-6.13) x10^3/uL Basophils # (0.01-0.08) x10^3/uL Sodium (135-145) mmol/L Potassium (3.5-5.1) mmol/L Chloride (98-107) mmol/L Carbon Dioxide (22-30) mmol/L Anion Gap (5-15) MEQ/L BUN (7-17) mg/dL Creatinine (0.52-1.04) mg/dL Estimated GFR ML/MIN Glucose (74-106) mg/dL Calcium (8.4-10.2) mg/dL Total Bilirubin (0.2-1.3) mg/dL AST (14-36) U/L ALT (0-35) U/L Alkaline Phosphatase (38-126) U/L Troponin I < 0.012 (0.000-0.033) ng/mL Serum Total Protein (6.3-8.2) g/dL Albumin (3.5-5.0) g/dL Triglycerides (30-150) mg/dL Cholesterol (50-200) mg/dL LDL Cholesterol (30-100) mg/dL HDL Cholesterol (40-60) mg/dL Heart Disease Risk Ratio TSH 3rd Generation 1.624 (0.470-4.680) mIU/L Urine Color Yellow (Yellow) Urine Appearance Cloudy A (Clear) Urine pH 6.0 (4.6-8.0) Ur Specific Leeper 1.015 (1.005-1.030) Urine Protein Negative (Negative) Urine Glucose (UA) Negative (Negative) mg/dL Urine Ketones 15 A (Negative) Urine Blood Small A (Negative) Urine Nitrite Negative (Negative) Urine Bilirubin Negative (Negative) Urine Urobilinogen 0.2 (0.2) mg/dL Ur Leukocyte Esterase Large A (Negative) U Hyaline Cast (Auto) 3-5 A (0-2) /LPF Urine Microscopic RBC 11-20 A (0-5) /HPF Urine Microscopic WBC 21-50 A (0-5) /HPF Ur Epithelial Cells Few (None Seen) /HPF Urine Bacteria Many A (None Seen) /HPF Urine Culture Reflexed YES (NO) C. difficile Screen (NEGATIVE) C.difficile 027-NAP1-B1 (NEGATIVE) 08/14/24 08/14/24 08/15/24 Range/Units 20:30 Unknown 05:15 WBC 5.4 (3.98-10.04) x10^3/uL RBC 4.05 (3.93-5.22) x10^6/uL Hgb 12.3 (11.2-15.7) g/dL Hct 37.3 (34.1-44.9) % MCV 92.1 (79.4-94.8) fL MCH 30.4 (25.6-32.2) pg MCHC 33.0 (32.2-35.5) g/dL RDW 13.4 (11.7-14.4) % Plt Count 210 (182-369) x10^3/uL MPV 10.9 (9.4-12.3) fL Gran % 49.6 (34.0-71.1) % Immature Gran % (Auto) 0.4 (0.001-0.429) % Nucleat RBC Rel Count 0.0 (0.00-0.2) % Eos # (Auto) 0.13 (0.04-0.36) x10^3/uL Immature Gran # (Auto) 0.02 (0.001-0.031) x10^3u/L Absolute Lymphs (auto) 1.28 (1.18-3.74) x10^3/uL Absolute Monos (auto) 1.23 H (0.24-0.86) x10^3/uL Absolute Nucleated RBC 0.00 (0.00-0.012) x10^3u/L Lymphocytes % 23.9 (19.3-51.7) % Monocytes % 23.0 H (4.7-12.5) % Eosinophils % 2.4 (0.7-5.8) % Basophils % 0.7 (0.1-1.2) % Absolute Granulocytes 2.65 (1.56-6.13) x10^3/uL Basophils # 0.04 (0.01-0.08) x10^3/uL Sodium (135-145) mmol/L Potassium (3.5-5.1) mmol/L Chloride (98-107) mmol/L Carbon Dioxide (22-30) mmol/L Anion Gap (5-15) MEQ/L BUN (7-17) mg/dL Creatinine (0.52-1.04) mg/dL Estimated GFR ML/MIN Glucose (74-106) mg/dL Calcium (8.4-10.2) mg/dL Total Bilirubin (0.2-1.3) mg/dL AST (14-36) U/L ALT (0-35) U/L Alkaline Phosphatase (38-126) U/L Troponin I < 0.012 (0.000-0.033) ng/mL Serum Total Protein (6.3-8.2) g/dL Albumin (3.5-5.0) g/dL Triglycerides (30-150) mg/dL Cholesterol (50-200) mg/dL LDL Cholesterol (30-100) mg/dL HDL Cholesterol (40-60) mg/dL Heart Disease Risk Ratio TSH 3rd Generation (0.470-4.680) mIU/L Urine Color (Yellow) Urine Appearance (Clear) Urine pH (4.6-8.0) Ur Specific Leeper (1.005-1.030) Urine Protein (Negative) Urine Glucose (UA) (Negative) mg/dL Urine Ketones (Negative) Urine Blood (Negative) Urine Nitrite (Negative) Urine Bilirubin (Negative) Urine Urobilinogen (0.2) mg/dL Ur Leukocyte Esterase (Negative) U Hyaline Cast (Auto) (0-2) /LPF Urine Microscopic RBC (0-5) /HPF Urine Microscopic WBC (0-5) /HPF Ur Epithelial Cells (None Seen) /HPF Urine Bacteria (None Seen) /HPF Urine Culture Reflexed (NO) C. difficile Screen POSITIVE (NEGATIVE) C.difficile 027-NAP1-B1 PRESUMPTIVE NEGATIVE (NEGATIVE) 08/15/24 Range/Units 05:15 WBC (3.98-10.04) x10^3/uL RBC (3.93-5.22) x10^6/uL Hgb (11.2-15.7) g/dL Hct (34.1-44.9) % MCV (79.4-94.8) fL MCH (25.6-32.2) pg MCHC (32.2-35.5) g/dL RDW (11.7-14.4) % Plt Count (182-369) x10^3/uL MPV (9.4-12.3) fL Gran % (34.0-71.1) % Immature Gran % (Auto) (0.001-0.429) % Nucleat RBC Rel Count (0.00-0.2) % Eos # (Auto) (0.04-0.36) x10^3/uL Immature Gran # (Auto) (0.001-0.031) x10^3u/L Absolute Lymphs (auto) (1.18-3.74) x10^3/uL Absolute Monos (auto) (0.24-0.86) x10^3/uL Absolute Nucleated RBC (0.00-0.012) x10^3u/L Lymphocytes % (19.3-51.7) % Monocytes % (4.7-12.5) % Eosinophils % (0.7-5.8) % Basophils % (0.1-1.2) % Absolute Granulocytes (1.56-6.13) x10^3/uL Basophils # (0.01-0.08) x10^3/uL Sodium 138 (135-145) mmol/L Potassium 3.6 (3.5-5.1) mmol/L Chloride 107 (98-107) mmol/L Carbon Dioxide 26 (22-30) mmol/L Anion Gap 9.2 (5-15) MEQ/L BUN 13 (7-17) mg/dL Creatinine 0.84 (0.52-1.04) mg/dL Estimated GFR 74.3 ML/MIN Glucose 86 (74-106) mg/dL Calcium 8.4 (8.4-10.2) mg/dL Total Bilirubin 0.30 (0.2-1.3) mg/dL AST 45 H (14-36) U/L ALT 28 (0-35) U/L Alkaline Phosphatase 48 (38-126) U/L Troponin I (0.000-0.033) ng/mL Serum Total Protein 7.0 (6.3-8.2) g/dL Albumin 4.1 (3.5-5.0) g/dL Triglycerides 70 (30-150) mg/dL Cholesterol 149 (50-200) mg/dL LDL Cholesterol 84 (30-100) mg/dL HDL Cholesterol 39 L (40-60) mg/dL Heart Disease Risk Ratio 4.0 TSH 3rd Generation (0.470-4.680) mIU/L Urine Color (Yellow) Urine Appearance (Clear) Urine pH (4.6-8.0) Ur Specific Leeper (1.005-1.030) Urine Protein (Negative) Urine Glucose (UA) (Negative) mg/dL Urine Ketones (Negative) Urine Blood (Negative) Urine Nitrite (Negative) Urine Bilirubin (Negative) Urine Urobilinogen (0.2) mg/dL Ur Leukocyte Esterase (Negative) U Hyaline Cast (Auto) (0-2) /LPF Urine Microscopic RBC (0-5) /HPF Urine Microscopic WBC (0-5) /HPF Ur Epithelial Cells (None Seen) /HPF Urine Bacteria (None Seen) /HPF Urine Culture Reflexed (NO) C. difficile Screen (NEGATIVE) C.difficile 027-NAP1-B1 (NEGATIVE) Micro Results-Entire Visit: Microbiology 08/14/24 14:11 Urine Culture - Preliminary Urine, Void GRAM NEGATIVE ID AND SENSITIVITY PENDING - Radiology Exams Ordered Rad Exams-Entire Visit: Radiology Procedures Category Date Time Status CAROTID BILATERAL [US] Routine Exams 08/15/24 18:19 Ordered ECHO W/2D AND DOPPLER [US] Routine Exams 08/15/24 18:26 Ordered HEAD WITHOUT CONTRAST [CT] Stat Exams 08/14/24 12:37 Completed - Procedures and Test Procedures and Tests throughout Hospitalization: Therapy Orders & Screens 08/14/24 18:14 Smoking Cessation Education ONCE Comment: Diagnosis: Syncope and collapse/UTI Smoking Status: Current every day smoker How long have you smoked: years Have you smoked in the past 12 months: Yes Approximately how many cigarettes per day: 20 Do you dip or chew tobacco: No 08/14/24 18:17 PT Eval & Treat (MD Order) ONCE Reason for Eval:: weakness Diagnosis: Syncope and collapse/UTI EKG REPEAT IN AM Comment: Diagnosis: Syncope and collapse/UTI OT Eval and Treat (MD Order) ONCE Comment: Physician Instructions: Reason For Exam: Diagnosis: Syncope and collapse/UTI Discharge Exam General Appearance: no apparent distress Neurologic Exam: alert Eye Exam: PERRL Ears, Nose, Throat Exam: normal ENT inspection Neck Exam: normal inspection Respiratory Exam: normal breath sounds, lungs clear Cardiovascular Exam: regular rate/rhythm, normal heart sounds Gastrointestinal/Abdomen Exam: soft, normal bowel sounds Pelvic Exam: deferred Back Exam: normal inspection Extremity Exam: normal inspection Skin Exam: normal color Final Diagnosis/Problem List - Final Discharge Diagnosis/Problem (1) Syncope and collapse Current Visit: Yes Status: Resolved Code(s): R55 - SYNCOPE AND COLLAPSE (2) UTI (urinary tract infection) Current Visit: Yes Status: Acute Code(s): N39.0 - URINARY TRACT INFECTION, SITE NOT SPECIFIED (3) HTN (hypertension) Current Visit: Yes Status: Chronic Code(s): I10 - ESSENTIAL (PRIMARY) HYPERTENSION (4) Diarrhea Current Visit: Yes Status: Acute Code(s): R19.7 - DIARRHEA, UNSPECIFIED - Discharge Discharge Date: 08/15/24 Disposition: Home, Self-Care Condition: Stable Prescriptions: New Cefdinir 300 mg PO BID 7 Days #14 cap Continue Citalopram Hydrobromide [ceLEXa] 40 mg PO DAILY Metoprolol Succinate [Toprol Xl] 25 mg PO DAILY Multivitamin [Multivitamins] 1 each PO DAILY Calcium Carbonate/Vitamin D3 [Calcium 600 with Vit D Chew Tb] 600 mg PO BID Amlodipine Besylate 5 mg [Norvasc 5 mg] 5 mg PO DAILY Cholecalciferol (Vitamin D3) [Vitamin D3] 50 mcg PO DAILY Follow up with: BOYD CAR DO [Primary Care Provider] -
--- NOTE | 2024-08-15 12:07 | XRAY ---
Indication: Syncope. Two-dimensional sonogram and color Doppler imaging carotid arteries of the neck performed. Comparison: None Examination right carotid circulation demonstrates mild calcified plaquing at the level of the bulb. Widely patent common carotid, internal carotid, and external carotid arteries. PSV CCA is 78 cm/s. PSV ICA is 94 cm/s. ICA/CCA ratio is 1.2. Normal antegrade vertebral artery flow. Examination left carotid circulation demonstrates very minimal eccentric soft plaquing carotid bulb. Proximal internal carotid artery demonstrates minimal eccentric calcified plaquing. Widely patent common carotid and external carotid arteries. PSV CCA is 66 cm/s. PSV ICA is 84 cm/s. ICA/CCA ratio is 1.3. Normal antegrade vertebral artery flow. Impression: Mild arteriosclerotic disease bilaterally as detailed. Velocity measurements and ratios negative for hemodynamically significant flow-limiting stenosis.
[2024-08-15 12:25] VITALS: RESP 17
== END 2024-08-15 13:15 | disposition home or self-care (01) ==
LOC: ED 11:57 → MED SURG 17:26
PROVIDERS: ADMIT Internal Medicine; ATTEND Internal Medicine
DX: R55 Syncope and collapse (principal); N39.0 Urinary tract infection, site not specified; I10 Essential (primary) hypertension; R19.7 Diarrhea, unspecified; F17.200 Nicotine dependence, unspecified, uncomplicated; Z79.899 Other long term (current) drug therapy; Z85.41 Personal history of malignant neoplasm of cervix uteri
CPT/HCPCS: 36415; 70450; 80053; 80061; 81001; 83721; 84443; 84484; 85025; 87045; 87046; 87077; 87086; 87177; 87186; 87209; 87328; 87329; 87427; 87493; 93005; 93041; 93268; 93306; 93880; 94760; 96374; 96375; 97161; 99285; G0378; Q3014; 99284; J0696; J1885; A9270-GY